=== PATIENT | female | born 1970 | race Caucasian/White ===

== ENCOUNTER 2017-09-06 17:28 | Emergency (ER) | payer BC ==
[2017-09-06] MEDS ORDERED: Ondansetron 4 MG/2 ML SDV IVPUSH ONE (18:53)
[2017-09-06] MEDS ORDERED: HYDROmorphone 0.5 MG/0.5 ML Syringe IVPUSH ONE (18:53)
[2017-09-06] MEDS ORDERED: Sodium Chloride 0.9% 1,000 ML IV SCH (19:00)
--- NOTE | 2017-09-06 19:09 | EDM.PDOC ---
ED HPI GENERAL MEDICAL PROBLEM - General Chief Complaint: Skin Complaint Stated Complaint: INCISION LEAKING FLUID Time Seen by Provider: 09/06/17 18:39 Source of Information: Reports: Patient History Limitations: Reports: No Limitations - History of Present Illness INITIAL COMMENTS - FREE TEXT/NARRATIVE: abdominal pain; this is a 47 year old female present to ER with her Stoney, she reports she had an abdominal resection on 08/15/[address] Anne Marie campos. She had her follow-up appointment on 08/28/17. Which noted a hard lump to the left periumbilical area abdomen,this mass was felt to be a hematoma. Recommendations were monitoring. Today she noted increasing abdominal pain a sudden gush of fluids from the incisional area choices foul smelling in order continues to leak fluids increasing pain. Last meal at 3 PM today; tuna fish and crackers Bowel and bladder; bowel movement, no dysuria. Denies fever chills, nausea or vomiting. Pain level IV out of 10 Onset: Sudden Duration: Hour(s):, Constant Location: Reports: Abdomen Quality: Reports: Ache, Sharp Severity: Moderate Improves with: Reports: None Worsens with: Reports: None Associated Symptoms: Reports: No Other Symptoms Lower Abdomen Pain Score (Numeric/FACES): 3 - Related Data Allergies Allergy/AdvReac Type Severity Reaction Status Date / Time cephalexin [Cephalexin] Allergy Mild Rash Verified 05/25/14 14:07 doxycycline Allergy Mild Rash Verified 05/25/14 14:07 Sulfa (Sulfonamide Allergy Mild Rash Verified 05/25/14 14:07 Antibiotics) sulfamethoxazole Allergy Mild Rash Verified 05/25/14 14:07 [From ] trimethoprim [From ] Allergy Mild Rash Verified 05/25/14 14:07 Home Meds: Home Meds traMADol [Ultram ER] 50 mg PO DAILY 04/28/13 [History] Adalimumab [Humira] 40 mg SQ ASDIRECTED 09/06/17 [History] azaTHIOprine [Imuran] 50 mg PO DAILY 09/06/17 [History] traZODone 50 mg PO BEDTIME 09/06/17 [History] Past Medical History HEENT History: Reports: Impaired Vision Gastrointestinal History: Reports: Colon Polyp, Inflammatory Bowel Disease, Other (See Below) Other Gastrointestinal History: crohns 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: Reports: Other OB/BYN History: History of tubal Musculoskeletal History: Reports: Arthritis, Fracture Dermatologic History: Reports: Eczema - Infectious Disease History Infectious Disease History: Reports: Chicken Pox 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 - Past Surgical History GI Surgical History: Reports: Hernia Repair/Other, Small Bowel Female Surgical History: Reports: Tubal Ligation Neurological Surgical History: Reports: Discectomy, Lumbar Spine Other Musculoskeletal Surgeries/Procedures:: History of back surgery Social & Family History - Family History HEENT: Reports: None Cardiac: Reports: Afib Respiratory: Reports: COPD Musculoskeletal: Reports: Arthritis Hematologic: Reports: None Oncologic: Reports: Colon, Lung - Tobacco Use Smoking Status *Q: Current Every Day Smoker Years of Tobacco use: 30 Packs/Tins Daily: 0.5 Used Tobacco, but Quit: No Second Hand Smoke Exposure: No - Caffeine Use Caffeine Use: Reports: Soda - Alcohol Use Days Per Week of Alcohol Use: 0 - Recreational Drug Use Recreational Drug Use: No - Living Situation & Occupation Living situation: Reports: Occupation: Employed (This with her Stoney and Blanca Dumont employed by [employer] in [employer].) ED ROS GENERAL - Review of Systems Review Of Systems: See Below Constitutional: Reports: Other (Abdominal pain) HEENT: Reports: No Symptoms Respiratory: Reports: No Symptoms Cardiovascular: Reports: No Symptoms Endocrine: Reports: No Symptoms GI/Abdominal: Reports: Abdominal Pain : Reports: No Symptoms Musculoskeletal: Reports: No Symptoms Skin: Reports: Other (Surgical incision with leakage) Neurological: Reports: No Symptoms Psychiatric: Reports: No Symptoms Hematologic/Lymphatic: Reports: No Symptoms Immunologic: Reports: No Symptoms ED EXAM, SKIN/RASH Exam: See Below Exam Limited By: No Limitations General Appearance: Alert, WD/WN, Anxious, Mild Distress Eye Exam: Bilateral Eye: Normal Inspection Ears: Normal External Exam Nose: Normal Inspection Throat/Mouth: Normal Inspection Head: Atraumatic, Normocephalic Neck: Normal Inspection, Supple, Non-Tender, Full Range of Motion Respiratory/Chest: No Respiratory Distress, Lungs Clear, Normal Breath Sounds, No Accessory Muscle Use, Chest Non-Tender Cardiovascular: Normal Peripheral Pulses, Regular Rate, Rhythm, No Edema, No Murmur Peripheral Pulses: 2+: Radial (L), Radial (R), Dorsalis Pedis (L), Dorsalis Pedis (R) GI/Abdominal: Normal Bowel Sounds, Soft, Tender, Other (Surgical incision noted periumbilical area with inflammation, incision was leakage of pale yellow discharge) (Female) Exam: Deferred Rectal (Female) Exam: Deferred Back Exam: Normal Inspection, Full Range of Motion Extremities: Normal Inspection, Normal Range of Motion, Non-Tender, No Pedal Edema, Normal Capillary Refill Neurological: Alert, Oriented, Normal Cognition, No Motor/Sensory Deficits Psychiatric: Anxious, Tearful Skin: Erythema (Surrounding incision), Increased Warmth, Other (Wound assistance noted to the distal end of surgical incision approximately 0.5 cm draining pale yellow green discharge ) Location, Skin: Abdomen (Umbilical with surgical incision) Characteristics: Erythematous Associated features: Warmth, Tenderness, Swelling, Inflammation, Weeping Lymphatic: No Adenopathy Course - Vital Signs Last Recorded V/S: Last Vital Signs Temp 36.7 C 09/06/17 17:57 Pulse 95 09/06/17 17:57 Resp 16 09/06/17 17:57 BP 132/73 09/06/17 17:57 Pulse Ox 97 09/06/17 17:57 - Orders/Labs/Meds Orders: Active Orders 24 hr Category Date Time Status Abdomen Pelvis w Cont [CT] Stat Exams 09/06/17 18:54 Taken Sodium Chloride 0.9% [Normal Saline] 1,000 ml Med 09/06/17 19:00 Active IV ASDIRECTED Sodium Chloride 0.9% [Normal Saline] 100 ml Med 09/06/17 19:30 Active IV ASDIRECTED Medication Orders Sodium Chloride (Normal Saline) 1,000 mls @ 999 mls/hr IV ASDIRECTED MILDRED Last Admin: 09/06/17 19:07 Dose: 999 mls/hr Sodium Chloride (Normal Saline) 100 mls @ 3 mls/sec IV ASDIRECTED MILDRED Last Admin: 09/06/17 19:32 Dose: 3 mls/sec Labs: Laboratory Tests 09/06/17 09/06/17 09/06/17 Range/Units 19:09 19:09 19:09 WBC 10.6 (4.5-11.0) K/uL RBC 4.50 (3.30-5.50) M/uL Hgb 13.4 (12.0-15.0) g/dL Hct 40.0 (36.0-48.0) % MCV 89 (80-98) fL MCH 30 (27-31) pg MCHC 34 (32-36) % Plt Count 374 (150-400) K/uL Neut % (Auto) 61 (36-66) % Lymph % (Auto) 26 (24-44) % [place] % (Auto) 9 H (2-6) % Eos % (Auto) 4 (2-4) % Baso % (Auto) 1 (0-1) % Sodium (140-148) mmol/L Potassium (3.6-5.2) mmol/L Chloride (100-108) mmol/L Carbon Dioxide (21-32) mmol/L Anion Gap (5.0-14.0) mmol/L BUN (7-18) mg/dL Creatinine 1.3 H D (0.6-1.0) mg/dL Est Cr Clr Drug Dosing 52.15 mL/min Estimated GFR (MDRD) 44 L (>60) Glucose (74-106) mg/dL Lactic Acid 3.0 H (0.4-2.0) mmol/L Calcium (8.5-10.1) mg/dL Total Bilirubin (0.2-1.0) mg/dL AST (15-37) U/L ALT (12-78) U/L Alkaline Phosphatase (46-116) U/L C-Reactive Protein 1.26 H (0.0-0.3) mg/dL Total Protein (6.4-8.2) g/dL Albumin (3.4-5.0) g/dL Globulin (2.3-3.5) g/dL Albumin/Globulin Ratio (1.2-2.2) 09/06/17 Range/Units 19:09 WBC (4.5-11.0) K/uL RBC (3.30-5.50) M/uL Hgb (12.0-15.0) g/dL Hct (36.0-48.0) % MCV (80-98) fL MCH (27-31) pg MCHC (32-36) % Plt Count (150-400) K/uL Neut % (Auto) (36-66) % Lymph % (Auto) (24-44) % [place] % (Auto) (2-6) % Eos % (Auto) (2-4) % Baso % (Auto) (0-1) % Sodium 142 (140-148) mmol/L Potassium 3.4 L (3.6-5.2) mmol/L Chloride 105 (100-108) mmol/L Carbon Dioxide 25 (21-32) mmol/L Anion Gap 15.4 H (5.0-14.0) mmol/L BUN 13 (7-18) mg/dL Creatinine 1.3 H D (0.6-1.0) mg/dL Est Cr Clr Drug Dosing 52.15 mL/min Estimated GFR (MDRD) 44 L (>60) Glucose 87 (74-106) mg/dL Lactic Acid (0.4-2.0) mmol/L Calcium 9.0 (8.5-10.1) mg/dL Total Bilirubin 0.4 (0.2-1.0) mg/dL AST 12 L (15-37) U/L ALT 12 (12-78) U/L Alkaline Phosphatase 71 (46-116) U/L C-Reactive Protein (0.0-0.3) mg/dL Total Protein 6.4 (6.4-8.2) g/dL Albumin 3.3 L (3.4-5.0) g/dL Globulin 3.1 (2.3-3.5) g/dL Albumin/Globulin Ratio 1.1 L (1.2-2.2) Meds: Medications Generic Name Dose Route Start Last Admin Trade Name Freq PRN Reason Stop Dose Admin Sodium Chloride 1,000 mls @ 999 mls/hr 09/06/17 19:00 09/06/17 19:07 Normal Saline IV 999 mls/hr ASDIRECTED MILDRED Administration Sodium Chloride 100 mls @ 3 mls/sec 09/06/17 19:30 09/06/17 19:32 Normal Saline IV 3 mls/sec ASDIRECTED MILDRED Administration Discontinued Medications Generic Name Dose Route Start Last Admin Trade Name Freq PRN Reason Stop Dose Admin Hydromorphone HCl 0.5 mg 09/06/17 18:53 09/06/17 19:08 Dilaudid IVPUSH 09/06/17 18:54 0.5 mg ONETIME ONE Administration Hydromorphone HCl 1 mg 09/06/17 20:43 Dilaudid IVPUSH 09/06/17 20:44 ONETIME ONE Iopamidol 150 ml 09/06/17 19:30 09/06/17 19:32 Isovue-300 (61%) IV 120 ml . DIRECTED MILDRED Administration Ondansetron HCl 4 mg 09/06/17 18:53 09/06/17 19:08 Zofran IVPUSH 09/06/17 18:54 4 mg ONETIME ONE Administration - Re-Assessments/Exams Free Text/Narrative Re-Assessment/Exam: 09/06/17 19:14 Will rule out abscess or other complication from small bowel resection Labs: CBC, CMP, lactic acid, CRP. Imaging: Abdomen pelvis CT with contrast Medications: Normal saline at 999mL per hour, Zofran 4 mg IV, Dilaudid 0.5 mg IV Advised to keep nothing by mouth Patient and agrees with plan of care 09/06/17 20:59 CT report shows a 4.33.17 cm complex collection within the subcutaneous tissues of the anterior abdominal wall partially underlying the incision. This could reflect a seroma through superinfection of a seroma may be considered in the setting of purulent drainage from a wound. 2. No deeper intra-abdominal or pelvic fluid collection. 3. Trace pelvic fluid seen 4. Multiple uterine mass masses likely reflecting fibroids. 5. Gallstones. 6. Multiple liver lesions which should be compared with prior CT or further characterization characterized with MRI if no prior CTs are available. Discussed report with patient she will be transferred to [facility]. for further care and treatment, Dr. Joel, is accepting physician. She'll be transferred by private vehicle, will transport. Given Dilaudid 1 mg IV prior to discharge for pain control Departure - Departure Time of Disposition: 21:02 Disposition: DC/Tfer to Acute Hospital 02 Condition: Good Clinical Impression: Abscess - Discharge Information Referrals: Markus Gaspar MD [Primary Care Provider] - Forms: ED Department Discharge Care Plan Goals: Seroma of the abdomen -Transferred to [facility], Surgery service accepting -Will be transported by private vehicle - My Orders Last 24 Hours: My Active Orders 09/06/17 18:54 Abdomen Pelvis w Cont [CT] Stat 09/06/17 19:00 Sodium Chloride 0.9% [Normal Saline] 1,000 ml IV ASDIRECTED 09/06/17 19:30 Sodium Chloride 0.9% [Normal Saline] 100 ml IV ASDIRECTED - Assessment/Plan Last 24 Hours: My Active Orders 09/06/17 18:54 Abdomen Pelvis w Cont [CT] Stat 09/06/17 19:00 Sodium Chloride 0.9% [Normal Saline] 1,000 ml IV ASDIRECTED 09/06/17 19:30 Sodium Chloride 0.9% [Normal Saline] 100 ml IV ASDIRECTED
[2017-09-06] MEDS ORDERED: Sodium Chloride 0.9% 100 ML IV SCH (19:30)
[2017-09-06] MEDS ORDERED: Iopamidol 612 MG/ML 150 ML Bottle IV SCH (19:30)
[2017-09-06] MEDS ORDERED: HYDROmorphone 1 MG/ML Syringe IVPUSH ONE (20:43)
[2017-09-06 21:03] VITALS: BP 122/63
== END 2017-09-06 21:29 ==
LOC: JP.ED 17:28
DX: T81.4XXA Infection following a procedure, initial encounter (principal); L02.211 Cutaneous abscess of abdominal wall; Z88.1 Allergy status to other antibiotic agents; Z88.2 Allergy status to sulfonamides
CPT/HCPCS: 36415; 74177; 80053; 82565; 83605; 85025; 86140; 96361; 96374; 96375; 96376; 99285; J1170; J2405; J7030; J7040

== ENCOUNTER 2018-01-22 05:28 | Inpatient (IN) | payer BC ==
[2018-01-22] MEDS ORDERED: Scopolamine 1.5 MG Transdermal Patch TOP ONE (06:00)
[2018-01-22] MEDS ORDERED: Levofloxacin/Dextrose 5%-Water 500 MG in Premix Bag 1 BAG IV ONE (06:00)
[2018-01-22] MEDS ORDERED: Acetaminophen 500 MG Tab PO ONE (06:00)
[2018-01-22] MEDS ORDERED: Dextrose 5%-Lactated Ringers 1,000 ML IV SCH (06:00)
[2018-01-22] MEDS ORDERED: Meropenem 500 MG SDV ONE (07:03)
[2018-01-22] MEDS ORDERED: fentaNYL 250 MCG/5 ML SDV ONE ×3 (07:04→08:52)
[2018-01-22] MEDS ORDERED: Glycopyrrolate 0.2 MG/ML 5 ML MDV ONE (07:05)
[2018-01-22] MEDS ORDERED: Neostigmine Methylsulfate 1 MG/ML 5 ML Syringe ONE (07:05)
[2018-01-22] MEDS ORDERED: Propofol 200 MG/20 ML SDV ONE (07:05)
[2018-01-22] MEDS ORDERED: Ondansetron 4 MG/2 ML SDV ONE (07:05)
[2018-01-22] MEDS ORDERED: Dexamethasone 4 MG/ML SDV ONE (07:05)
[2018-01-22] MEDS ORDERED: Rocuronium 50 MG/5 ML Vial ONE ×2 (07:05→07:54)
[2018-01-22] MEDS ORDERED: HYDROmorphone/Normal Saline 15 MG/30 ML PCA IV PRN (07:18)
[2018-01-22] MEDS ORDERED: Naloxone 0.4 MG/ML SDV IVPUSH PRN (07:18)
[2018-01-22] MEDS ORDERED: Ropivacaine 39 ML, Dexamethasone 8 MG, EPINEPHrine 0.4 MG, Sodium Chloride 0.9% 38.6 ML NERVRT SCH ×4 (07:30)
[2018-01-22] MEDS ORDERED: Ketamine 500 MG/5 ML MDV IV SCH (07:30)
[2018-01-22] MEDS ORDERED: Lactated Ringers 1,000 ML ONE (09:31)
[2018-01-22] MEDS ORDERED: hydrOXYzine HCl 100 MG/2 ML SDV IM ONE (09:55)
[2018-01-22] MEDS ORDERED: fentaNYL 100 MCG/2 ML SDV IVPUSH ONE (09:55)
[2018-01-22] MEDS ORDERED: LORazepam 2 MG/ML SDV IVPUSH ONE (10:31)
[2018-01-22] MEDS ORDERED: hydrOXYzine HCl 100 MG/2 ML SDV IM PRN (11:44)
[2018-01-22] MEDS: Cyclobenzaprine 10 MG Tab PO PRN (12:07)
[2018-01-22] MEDS: LORazepam 2 MG/ML SDV IV PRN ×2 (13:06→18:31)
[2018-01-22] MEDS: Pantoprazole 40 MG Vial IV SCH (13:15)
[2018-01-22] MEDS: Dextrose 5%-Lactated Ringers 1,000 ML IV SCH ×2 (13:17→19:17)
[2018-01-22] MEDS: Acetaminophen 500 MG Tab PO SCH ×2 (13:37→20:14)
[2018-01-22] MEDS: Ibuprofen 400 MG Tab PO SCH ×2 (16:06→22:06)
[2018-01-22] MEDS: HYDROmorphone/Normal Saline 15 MG/30 ML PCA IV PRN (19:17)
[2018-01-22] MEDS: traZODone 50 MG Tab PO SCH (22:05)
[2018-01-23] MEDS: Dextrose 5%-Lactated Ringers 1,000 ML IV SCH ×2 (00:55→10:57)
[2018-01-23] MEDS: Acetaminophen 500 MG Tab PO SCH ×4 (02:11→20:07)
[2018-01-23] MEDS: Ibuprofen 400 MG Tab PO SCH ×4 (05:22→21:45)
[2018-01-23] MEDS: Levofloxacin/Dextrose 5%-Water 500 MG in Premix Bag 1 BAG IV SCH (05:24)
[2018-01-23] MEDS: Cyclobenzaprine 10 MG Tab PO PRN ×3 (07:36→23:56)
[2018-01-23] MEDS: Bisacodyl 5 MG Tab PO SCH ×2 (09:14→20:07)
--- NOTE | 2018-01-23 09:51 | PN ---
DATE OF SERVICE: 01/22/2018 SUBJECTIVE: Cheri is postoperative day 1. Her vital signs have been stable. Temperature max of 99.8. She has had quite a bit in the way of muscle spasms, taking Flexeril and they seem to use subside, up ambulating, n.p.o. Her oral intake 1200 and output via Marte catheter was 3000 of clear libia urine. LINDA drain put out 130 mL of a light pink serosanguineous drainage. OBJECTIVE: HEENT: Negative. NECK: Supple. HEART: Regular rate and rhythm. LUNGS: Clear. ABDOMEN: Dressing is dry and intact. Abdominal binder is on. LINDA drain intact. EXTREMITIES: SCDs are on and no peripheral edema. ASSESSMENT: Exploratory laparotomy with total abdominal hysterectomy, left salpingo- oophorectomy (right ovary left in place), repair of incarcerated incisional hernia with mesh and placement of Vicryl mesh for uterine fibroids with abnormal vaginal bleeding and incarcerated multifocal incisional hernia. Date of surgery 01/22/2018. PLAN: 1. Decrease IV to 100 mL per hour. 2. Leave Marte catheter in to promote better healing to keep bladder empty to avoid tension on suture line. 3. Senna Plus one b.i.d. 4. Dulcolax tablets one b.i.d. 5. Full liquid diet. 6. Good pulmonary toilet. 7. We will evaluate p.r.n. or in a.m. Lilly Sims PA-C /[id number]
[2018-01-23] MEDS: Pantoprazole 40 MG Vial IV SCH (15:18)
[2018-01-23] MEDS: HYDROmorphone/Normal Saline 15 MG/30 ML PCA IV PRN (15:40)
[2018-01-23] MEDS: traZODone 50 MG Tab PO SCH (20:08)
[2018-01-23] MEDS: Ondansetron 4 MG/2 ML SDV IV PRN (23:56)
[2018-01-24] MEDS: Acetaminophen 500 MG Tab PO SCH ×4 (02:17→19:16)
[2018-01-24] MEDS: Dextrose 5%-Lactated Ringers 1,000 ML IV SCH (02:23)
[2018-01-24] MEDS: Ibuprofen 400 MG Tab PO SCH ×4 (05:38→21:29)
[2018-01-24] MEDS: Levofloxacin/Dextrose 5%-Water 500 MG in Premix Bag 1 BAG IV SCH (05:55)
[2018-01-24] MEDS: Bisacodyl 5 MG Tab PO SCH ×2 (08:01→21:29)
[2018-01-24] MEDS: Pantoprazole 40 MG Vial IV SCH (14:03)
[2018-01-24] MEDS: Cyclobenzaprine 10 MG Tab PO PRN (14:48)
[2018-01-24] MEDS: HYDROmorphone/Normal Saline 15 MG/30 ML PCA IV PRN (17:19)
[2018-01-24] MEDS: traZODone 50 MG Tab PO SCH (21:28)
[2018-01-24] MEDS: hydrOXYzine HCl 10 MG Tab PO PRN (21:28)
[2018-01-25] MEDS: Dextrose 5%-Lactated Ringers 1,000 ML IV SCH ×2 (00:32→23:53)
[2018-01-25] MEDS: Acetaminophen 500 MG Tab PO SCH ×4 (01:01→20:49)
[2018-01-25] MEDS: Ibuprofen 400 MG Tab PO SCH ×4 (05:19→23:57)
[2018-01-25] MEDS: Levofloxacin/Dextrose 5%-Water 500 MG in Premix Bag 1 BAG IV SCH (05:20)
[2018-01-25] MEDS ORDERED: Magnesium Citrate Solution 296 ML Bottle PO ONE (07:30)
[2018-01-25] MEDS: Ondansetron 4 MG/2 ML SDV IV PRN ×2 (07:44→18:21)
[2018-01-25] MEDS: hydrOXYzine HCl 10 MG Tab PO PRN (08:13)
[2018-01-25] MEDS ORDERED: Scopolamine 1.5 MG Transdermal Patch TOP ONE (09:00)
[2018-01-25] MEDS: Bisacodyl 5 MG Tab PO SCH ×2 (09:01→23:56)
[2018-01-25] MEDS: Magnesium Citrate Solution 296 ML Bottle PO SCH ×2 (11:22→20:49)
[2018-01-25] MEDS: HYDROmorphone 2 MG Tab PO PRN ×2 (12:43→18:18)
[2018-01-25] MEDS: Pantoprazole 40 MG Vial IV SCH (14:48)
[2018-01-25] MEDS ORDERED: Bisacodyl 10 MG Supp RECTAL PRN (15:00)
[2018-01-25] MEDS ORDERED: Sodium Phosphate,Monobasic/Sodium Phosphate,Dibasic Enema 133 ML Bottle RECTAL STA (19:51)
[2018-01-25] MEDS: LORazepam 2 MG/ML SDV IV PRN (20:20)
[2018-01-25] MEDS ORDERED: Naloxone 0.4 MG/ML SDV IVPUSH PRN (23:22)
[2018-01-25] MEDS: HYDROmorphone/Normal Saline 15 MG/30 ML PCA IV PRN (23:41)
[2018-01-25] MEDS: Metoclopramide 10 MG/2 ML SDV IVPUSH SCH (23:51)
[2018-01-25] MEDS: traZODone 50 MG Tab PO SCH (23:56)
[2018-01-26] MEDS: LORazepam 2 MG/ML SDV IV PRN ×2 (00:05→04:17)
[2018-01-26] MEDS: Bisacodyl 5 MG Tab PO SCH (00:11)
[2018-01-26] MEDS: traZODone 50 MG Tab PO SCH (00:12)
[2018-01-26] MEDS: Acetaminophen 500 MG Tab PO SCH (01:59)
[2018-01-26] MEDS: Ondansetron 4 MG/2 ML SDV IV PRN (02:02)
[2018-01-26] MEDS: Ibuprofen 400 MG Tab PO SCH (05:59)
[2018-01-26] MEDS: Metoclopramide 10 MG/2 ML SDV IVPUSH SCH ×4 (05:59→22:30)
[2018-01-26] MEDS: Levofloxacin/Dextrose 5%-Water 500 MG in Premix Bag 1 BAG IV SCH (06:02)
[2018-01-26] MEDS ORDERED: Lidocaine 2% Viscous Solution 15 ML Cup PO STA (06:35)
[2018-01-26] MEDS ORDERED: Benzocaine/Cetylpyridinium/Menthol Lozenge MUCMEM PRN (07:43)
--- NOTE | 2018-01-26 07:47 | PCM.PN ---
- General Info Date of Service: 01/26/18 Admission Dx/Problem (Free Text): Uterine Fibroids and Incisional hernia. Subjective Update: Patient is POD #4. Her vitals were stable overnight, am abdominal X-Ray demonstrated an Ileus. Her po intake is where we would like it to be, although due to the Ileus she has been made NPO and an NG tube was placement. She has been up, ambulating, voiding and has had one BM in the last 24 hours. Functional Status: Reports: Pain Controlled, Ambulating, Urinating, New Symptoms , Incentive Spirometry - Review of Systems General: Reports: No Symptoms HEENT: Reports: No Symptoms Pulmonary: Reports: No Symptoms Cardiovascular: Reports: No Symptoms Gastrointestinal: Reports: No Symptoms Genitourinary: Reports: No Symptoms Musculoskeletal: Reports: No Symptoms Skin: Reports: No Symptoms Neurological: Reports: No Symptoms Psychiatric: Reports: No Symptoms - Patient Data Vitals - Most Recent: Last Vital Signs Temp 99.9 F 01/26/18 02:06 Pulse 108 H 01/26/18 02:06 Resp 16 01/26/18 02:06 BP 118/65 01/26/18 02:06 Pulse Ox 92 L 01/26/18 02:25 Weight - Most Recent: 172 lb 0.004 oz I&O - Last 24 Hours: Intake & Output 01/25/18 01/26/18 01/26/18 22:59 06:59 14:59 Intake Total 1000 729 Output Total 800 1100 Balance 200 -371 Med Orders - Current: Current Medications Acetaminophen (Tylenol Extra Strength) 1,000 mg PO Q6H [facility] Last Admin: 01/26/18 01:59 Dose: Not Given Azathioprine (Imuran) 50 mg PO DAILY [facility] Last Admin: 01/25/18 09:01 Dose: Not Given Bisacodyl (Dulcolax) 10 mg PO BID [facility] Last Admin: 01/26/18 00:11 Dose: Not Given Bisacodyl (Dulcolax) 10 mg RECTAL Q12H PRN PRN Reason: CONSTIPATION Last Admin: 01/25/18 16:23 Dose: 10 mg Cyclobenzaprine HCl (Flexeril) 10 mg PO Q6H PRN PRN Reason: MUSCLE SPASM Last Admin: 01/24/18 14:48 Dose: 10 mg Hydromorphone HCl (Dilaudid) 2 - 4 mg PO Q4H PRN PRN Reason: PAIN Last Admin: 01/25/18 18:18 Dose: 4 mg Hydromorphone HCl (Dilaudid Car Distributor 15 Mg In Ns 30 Ml) 0 mg IV ASDIRECTED PRN; Protocol PRN Reason: Pain Last Admin: 01/25/18 23:41 Dose: 15 mg Hydroxyzine HCl (Vistaril) 100 mg IM Q4H PRN PRN Reason: PAIN Last Admin: 01/24/18 17:13 Dose: 100 mg Hydroxyzine HCl (Atarax) 10 mg PO Q4H PRN PRN Reason: Pain Last Admin: 01/25/18 08:13 Dose: 10 mg Levofloxacin/Dextrose 500 mg/ (Premix) 100 mls @ 100 mls/hr IV Q24H [facility] Last Admin: 01/26/18 06:02 Dose: 100 mls/hr Dextrose/Lactated Ringer's (Dextrose 5%-Lactated Ringers) 1,000 mls @ 100 mls/ hr IV ASDIRECTED MILDRED Ibuprofen (Motrin) 400 mg PO QID [facility] Last Admin: 01/26/18 05:59 Dose: Not Given Lorazepam (Ativan) 0.5 - 1 mg IV Q2H PRN PRN Reason: MUSCLE SPASM Last Admin: 01/26/18 04:17 Dose: 1 mg Metoclopramide HCl (Reglan) 10 mg IVPUSH Q6H [facility] Naloxone HCl (Narcan) 0.1 mg IVPUSH Q2M PRN PRN Reason: Respiratory Distress Ondansetron HCl (Zofran) 4 mg IV Q4H PRN PRN Reason: N/V Last Admin: 01/26/18 02:02 Dose: 4 mg Pantoprazole Sodium (Protonix Iv) 40 mg IV Q24H [facility] Last Admin: 01/25/18 14:48 Dose: 40 mg Senna/Docusate Sodium (Senna Plus) 1 tab PO BID [facility] Last Admin: 01/26/18 00:12 Dose: Not Given Trazodone HCl (Trazodone) 50 mg PO BEDTIME [facility] Last Admin: 01/26/18 00:12 Dose: Not Given Discontinued Medications Acetaminophen (Tylenol Extra Strength) 1,000 mg PO ONETIME ONE Stop: 01/22/18 06:01 Last Admin: 01/22/18 05:56 Dose: 1,000 mg Ropivacaine 39 ml/Dexamethasone 8 mg/Epinephrine HCl 0.4 mg/ Sodium Chloride 38.6 ml 0 ml NERVRT ASDIRECTED [facility] Last Admin: 01/22/18 07:41 Dose: 80 syringe Dexamethasone (Dexamethasone) Confirm Administered Dose 4 mg .ROUTE .STK-MED ONE Stop: 01/22/18 07:06 Fentanyl (Sublimaze) Confirm Administered Dose 250 mcg .ROUTE .STK-MED ONE Stop: 01/22/18 07:05 Fentanyl (Sublimaze) Confirm Administered Dose 250 mcg .ROUTE .STK-MED ONE Stop: 01/22/18 07:43 Fentanyl (Sublimaze) Confirm Administered Dose 250 mcg .ROUTE .STK-MED ONE Stop: 01/22/18 08:53 Fentanyl (Sublimaze) 100 mcg IVPUSH ONETIME ONE Stop: 01/22/18 09:56 Last Admin: 01/22/18 09:59 Dose: 100 mcg Glycopyrrolate (Robinul) Confirm Administered Dose 1 mg .ROUTE .STK-MED ONE Stop: 01/22/18 07:06 Hydromorphone HCl (Dilaudid Car Distributor 15 Mg In Ns 30 Ml) 0 mg IV ASDIRECTED PRN; Protocol PRN Reason: Pain Last Admin: 01/22/18 07:36 Dose: 0.3 mg Hydromorphone HCl (Dilaudid Car Distributor 15 Mg In Ns 30 Ml) 0 mg IV ASDIRECTED PRN; Protocol PRN Reason: Pain Last Admin: 01/24/18 17:19 Dose: 15 mg Hydroxyzine HCl (Vistaril) 100 mg IM ONETIME ONE Stop: 01/22/18 09:56 Last Admin: 01/22/18 10:00 Dose: 100 mg Dextrose/Lactated Ringer's (Dextrose 5%-Lactated Ringers) 1,000 mls @ 100 mls/ hr IV ASDIRECTED [facility] Last Admin: 01/22/18 06:33 Dose: 100 mls/hr Levofloxacin/Dextrose 500 mg/ (Premix) 100 mls @ 100 mls/hr IV ONETIME ONE Stop: 01/22/18 06:59 Last Admin: 01/22/18 07:40 Dose: 100 mls/hr Ketamine HCl 100 mg/ Sodium (Chloride) 100 mls @ 18.6 mls/hr IV ASDIRECTED [facility] Lactated Ringer's (Ringers, Lactated) Confirm Administered Dose 1,000 mls @ as directed .ROUTE .STK-MED ONE Stop: 01/22/18 09:32 Dextrose/Lactated Ringer's (Dextrose 5%-Lactated Ringers) 1,000 mls @ 175 mls/ hr IV ASDIRECTED [facility] Last Admin: 01/23/18 00:55 Dose: 175 mls/hr Dextrose/Lactated Ringer's (Dextrose 5%-Lactated Ringers) 1,000 mls @ 100 mls/ hr IV ASDIRECTED [facility] Last Admin: 01/25/18 23:53 Dose: 100 mls/hr Ketamine HCl (Ketalar) 34 mg IV ASDIRECTED [facility] Lidocaine HCl (Xylocaine 2% Viscous) 15 ml PO ASDIRECTED [facility] Stop: 01/26/18 06:36 Last Admin: 01/26/18 06:45 Dose: 15 ml Lorazepam (Ativan) 1 mg IVPUSH ONETIME ONE Stop: 01/22/18 10:32 Last Admin: 01/22/18 10:39 Dose: 1 mg Magnesium Citrate (Citrate Of Magnesia) 296 ml PO ONETIME ONE Stop: 01/25/18 07:31 Last Admin: 01/25/18 07:45 Dose: 296 ml Magnesium Citrate (Citrate Of Magnesia) 296 ml PO Q8H [facility] Stop: 01/25/18 20:01 Last Admin: 01/25/18 20:49 Dose: Not Given Meropenem (Merrem) Confirm Administered Dose 500 mg .ROUTE .STK-MED ONE Stop: 01/22/18 07:04 Last Admin: 01/22/18 07:45 Dose: 500 mg Metoclopramide HCl (Reglan) 10 mg IVPUSH Q6H [facility] Last Admin: 01/26/18 05:59 Dose: 10 mg Neostigmine Methylsulfate (Neostigmine) Confirm Administered Dose 5 mg .ROUTE .STK-MED ONE Stop: 01/22/18 07:06 Ondansetron HCl (Zofran) Confirm Administered Dose 4 mg .ROUTE .STK-MED ONE Stop: 01/22/18 07:06 Propofol (Diprivan 20 Ml) Confirm Administered Dose 200 mg .ROUTE .STK-MED ONE Stop: 01/22/18 07:06 Rocuronium [place] (Zemuron) Confirm Administered Dose 50 mg .ROUTE .STK-MED ONE Stop: 01/22/18 07:06 Rocuronium [place] (Zemuron) Confirm Administered Dose 50 mg .ROUTE .STK-MED ONE Stop: 01/22/18 07:55 Scopolamine (Transderm-Scop) 1.5 mg TOP ONETIME ONE Stop: 01/22/18 06:01 Last Admin: 01/22/18 05:58 Dose: 1.5 mg Scopolamine (Transderm-Scop) 1.5 mg TOP ONETIME ONE Stop: 01/25/18 09:01 Last Admin: 01/25/18 09:01 Dose: 1.5 mg Sodium Biphosphate/Sodium Phosphate (Fleet Enema) 133 ml RECTAL ONETIME STA Stop: 01/25/18 19:52 Last Admin: 01/25/18 20:07 Dose: 1 bottle - Exam General: Alert, Oriented, Mild Distress (Patient was very uncomfrotable due to the Ileus and pressure from this distension. ) HEENT: Pupils Equal, Mucous Membr. Moist/[place] Neck: Supple Lungs: Clear to Auscultation, Normal Respiratory Effort Cardiovascular: Regular Rate, Regular Rhythm GI/Abdominal Exam: Distended Extremities: Normal Range of Motion Skin: Warm, Dry, Intact Wound/Incisions: Healing Well, Dressing Dry and Intact, No Drainage Neurological: No New Focal Deficit Psy/Mental Status: Alert, Normal Affect, Normal Mood - Problem List Review Problem List Initiated/Reviewed/Updated: Yes - Assessment Assessment:: Status post exploratory laparotmoy with total abdominal hysterectomy, left salpingo-oophorectomg repair of incarcerated incisional hernia with mesh and placement of vicryl mesh for uterine fibroids with abnormal vaginal bleeding and incarcerated multifocal incisional hernia. - Plan Plan:: 1. Metoclopramide 10mg IV push q6h 2. CBC/CMP/Mag/Phosphorus in am 3. NG tube placement 4. Abdomen AP flat upright timed 5. NPO 6. NG tube placement 7. Reevaluate prn or in am
[2018-01-26] MEDS ORDERED: Lidocaine 2% Viscous Solution 15 ML Cup MUCMEM PRN (08:08)
[2018-01-26] MEDS: Bisacodyl 10 MG Supp RECTAL SCH ×2 (09:19→22:30)
--- NOTE | 2018-01-26 10:20 | CR ---
Abdomen 2V AP Flat Upright INDICATION: f/u abdominal distention COMPARISON: Nothing recent. CT 09/06/2017. FINDINGS: 5 views. No free air. Small left pleural effusion or infiltrate. Moderately dilated small bowel in associated air-fluid levels in the abdomen. Maximum small bowel diameter is nearly 7 cm. No definite colonic distention. IMPRESSION: Small bowel obstruction.
[2018-01-26] MEDS: Dextrose 5%-Lactated Ringers 1,000 ML IV SCH ×2 (11:07→21:07)
--- NOTE | 2018-01-26 12:25 | PN ---
DATE OF SERVICE: 01/25/2018 The patient has been afebrile with stable vital signs. Passing little bit of flatus. No bowel movement as of yet. Abdomen is mildly distended. We will give her some magnesium citrate orally today and can repeat that this evening if necessary. Otherwise will give Dulcolax tablets. Will switch over to oral pain medication today. She may be ready for discharge home tomorrow. Cleve Vela MD Job #: [id number]
--- NOTE | 2018-01-26 13:25 | PN ---
DATE OF SERVICE: 01/24/2018 The patient has been afebrile with stable vital signs. No significant flatus or bowel movement as of yet. We will gradually advance her diet, but not meter changes records clerk to oral pain medication as of yet. Continue with bowel stimulation. The Marte catheter and LINDA drain I think can be removed and will have her get in the shower if desired. Cleve Vela MD Job #: [id number]
[2018-01-26] MEDS: Pantoprazole 40 MG Vial IV SCH (14:32)
[2018-01-26] MEDS ORDERED: Phenol/Sodium Phenolate Spray 180 ML Bottle PO SCH (19:30)
[2018-01-27] MEDS: Metoclopramide 10 MG/2 ML SDV IVPUSH SCH ×4 (05:01→21:32)
[2018-01-27] MEDS: Levofloxacin/Dextrose 5%-Water 500 MG in Premix Bag 1 BAG IV SCH (05:04)
--- NOTE | 2018-01-27 07:09 | PN ---
DATE OF SERVICE: 01/26/2018 The patient has been afebrile with stable vital signs. She was complaining of a little bit of nausea this morning and an abdominal x-ray showed markedly distended stomach and general ileus pattern. The NG tube was placed and a large amount came out and I suspect the patient was feeling somewhat better. We will make her n.p.o. except for ice chips and sips of water for today with the NG tube in place. Hold her medications and do Dulcolax suppositories b.i.d. Check some labs in the morning. Otherwise, maximize activity and work with pulmonary toilet. If things do not seem to be resolving, we may needing a CAT scan of the abdomen and pelvis to make sure there is not some early complication causing an obstructive pattern versus an ileus. Cleve Vela MD Job #: [id number]
--- NOTE | 2018-01-27 08:50 | CR ---
Abdomen 2V AP Flat Upright INDICATION: f/u ileus COMPARISON: 01/26/2018 FINDINGS: 2 views. NG tube is been placed with tip in the proximal stomach. Improvement in small bowel obstructive patte rn. Some dilated air-filled loops of small bowel and associated air-fluid levels persist. No free air .
[2018-01-27] MEDS: Potassium Phosphates 22.5 MMOLE in Sodium Chloride 0.9% 250 ML IV SCH ×2 (08:57→12:18)
[2018-01-27] MEDS: Bisacodyl 10 MG Supp RECTAL SCH ×2 (09:21→21:49)
[2018-01-27] MEDS: HYDROmorphone/Normal Saline 15 MG/30 ML PCA IV PRN (13:59)
[2018-01-27] MEDS: Pantoprazole 40 MG Vial IV SCH (14:02)
[2018-01-27] MEDS ORDERED: Loratadine 10 MG Tab PO PRN (21:08)
[2018-01-27] MEDS ORDERED: Acetaminophen 1,000 MG in Premix Bag 1 BAG IV ONE (21:15)
[2018-01-27] MEDS: traZODone 50 MG Tab PO SCH (21:37)
[2018-01-28] MEDS: Dextrose 5%-Lactated Ringers 1,000 ML IV SCH ×2 (01:07→12:22)
[2018-01-28] MEDS: Metoclopramide 10 MG/2 ML SDV IVPUSH SCH ×4 (03:25→21:53)
[2018-01-28] MEDS: Levofloxacin/Dextrose 5%-Water 500 MG in Premix Bag 1 BAG IV SCH (05:41)
[2018-01-28] MEDS: Acetaminophen 500 MG Tab PO SCH ×3 (10:07→21:53)
[2018-01-28] MEDS: Ibuprofen 400 MG Tab PO SCH ×3 (10:08→21:53)
[2018-01-28] MEDS ORDERED: Witch Hazel Medicated Pads 100/Jar TOP PRN (10:20)
[2018-01-28] MEDS ORDERED: Dextrose 5%-Lactated Ringers 1,000 ML IV SCH (14:15)
[2018-01-28] MEDS: Pantoprazole 40 MG Vial IV SCH (15:15)
[2018-01-28] MEDS: traZODone 50 MG Tab PO SCH (21:53)
[2018-01-29] MEDS: Acetaminophen 500 MG Tab PO SCH (04:29)
[2018-01-29] MEDS: Metoclopramide 10 MG/2 ML SDV IVPUSH SCH (04:29)
[2018-01-29] MEDS: Ibuprofen 400 MG Tab PO SCH (06:04)
[2018-01-29 07:33] VITALS: BP 111/65
--- NOTE | 2018-01-29 07:42 | PCM.DCSUM1 ---
Discharge Summary - Hospital Course Brief History: Wilfred is a 48 year old white female. She has a history of Crohn 's diseae and fibromyalgia. - Discharge Data Discharge Date: 01/29/18 Discharge Disposition: Home, Self-Care 01 Condition: Good - Patient Summary/Data Operative Procedure(s) Performed: Status post exploratory laparotmoy with total abdominal hysterectomy, left salpingo-oophorectomg repair of incarcerated incisional hernia with mesh and placement of vicryl mesh for uterine fibroids with abnormal vaginal bleeding and incarcerated multifocal incisional hernia. Complications: Post opperative Ileus. Hospital Course: Patient had surgery on 01/22/2018. On POD #1 she was experiencing muscle spasms that wer relived with Flexeril. POD#2 her vitals were stable with no acute changes although she had not had any flatus or a BM. POD #3 Her vitals continued to be stable, she began passing gas and still had not had a BM. Ducolax was given to try and progress the process. POD #4 Patient was feeling distended and an abdominal X-ray was taken. It demonstrated significant distension. The patient was made NPO and and NG tube was placed. Ducolax suppositories were used to continue to help progress the bowel movement. POD #5 NG was kept in till late pm. Patients discomfort and distension had improved. POD#6 Patients was stable and was having bowel movements. POD #7 Patient is preparing for discharge. - Patient Instructions Activity: As Tolerated - Discharge Plan Prescriptions/Med Rec: HYDROmorphone [Dilaudid] 2 - 4 mg PO Q4H PRN #40 tablet PRN Reason: PAIN Home Medications: Home Meds Adalimumab [Humira] 40 mg SQ ASDIRECTED 09/06/17 [History] azaTHIOprine [Imuran] 50 mg PO DAILY 09/06/17 [History] traZODone 50 mg PO BEDTIME 09/06/17 [History] Ibuprofen 200 mg PO Q6H PRN 01/20/18 [History] Acetaminophen [Tylenol Extra Strength] 1,000 mg PO Q6H tablet 01/29/18 [Rx] HYDROmorphone [Dilaudid] 2 - 4 mg PO Q4H PRN #40 tablet 01/29/18 [Rx] Referrals: Cleve Vela MD [Physician] - 02/04/18 9:00 am - Discharge Summary/Plan Comment DC Time >30 min.: Yes Discharge Summary/Plan Comment: 1. Acetaminophen 1,000 mg po 1rh tablet 2. Hydromorphone 2-4mg po q4h prn 3. Continue adalimumab 40mg Sub - Q as directed 4. Ibuprofen 200mg po every 6 hours prn for pain 5. Continue Azathioprin 50mg po qd 6. Continue trazadone 50mg po at bedtime 7. Stop tramadol 50mg po q6hr prn for pain 8. Plan for discharge - General Info Date of Service: 01/29/18 Admission Dx/Problem (Free Text: Uterine Fibroids and Incisional hernia. Subjective Update: Patient is POD #7 and is getting ready for discharge. Her vitals are stable and there were no acute events overnight. She is up, ambulating, voiding and has had multiple BMs in the last 24 hours. Functional Status: Reports: Pain Controlled, Tolerating Diet, Ambulating, Urinating, Incentive Spirometry - Review of Systems General: Reports: No Symptoms HEENT: Reports: No Symptoms Pulmonary: Reports: No Symptoms Cardiovascular: Reports: No Symptoms Gastrointestinal: Reports: No Symptoms Genitourinary: Reports: No Symptoms Musculoskeletal: Reports: No Symptoms Skin: Reports: No Symptoms Neurological: Reports: No Symptoms Psychiatric: Reports: No Symptoms Systems Review Comment: Remainder of ROS is negative for any pertinent positives or negatives. - Patient Data Vitals - Most Recent: Last Vital Signs Temp 97.3 F 01/29/18 07:00 Pulse 67 01/29/18 07:00 Resp 18 01/29/18 07:00 BP 111/65 01/29/18 07:00 Pulse Ox 98 01/29/18 07:00 Weight - Most Recent: 172 lb 0.004 oz I&O - Last 24 hours: Intake & Output 01/28/18 01/29/18 01/29/18 22:59 06:59 14:59 Intake Total 2 581 Output Total 1 Balance 1 581 Med Orders - Current: Current Medications Acetaminophen (Tylenol Extra Strength) 1,000 mg PO Q6H [facility] Last Admin: 01/29/18 04:29 Dose: 1,000 mg Azathioprine (Imuran) 50 mg PO DAILY [facility] Last Admin: 01/28/18 10:09 Dose: Not Given Benzocaine/Menthol (Cepacol Sore Throat) 1 lozenge MUCMEM ASDIRECTED PRN PRN Reason: SORE THROAT Last Admin: 01/26/18 16:06 Dose: 1 lozenge Cyclobenzaprine HCl (Flexeril) 10 mg PO Q6H PRN PRN Reason: MUSCLE SPASM Last Admin: 01/24/18 14:48 Dose: 10 mg Hydromorphone HCl (Dilaudid) 2 - 4 mg PO Q4H PRN PRN Reason: PAIN Last Admin: 01/25/18 18:18 Dose: 4 mg Hydromorphone HCl (Dilaudid Airplane Captain 15 Mg In Ns 30 Ml) 0 mg IV ASDIRECTED PRN; Protocol PRN Reason: Pain Last Admin: 01/27/18 13:59 Dose: 15 mg Hydroxyzine HCl (Vistaril) 100 mg IM Q4H PRN PRN Reason: PAIN Last Admin: 01/24/18 17:13 Dose: 100 mg Hydroxyzine HCl (Atarax) 10 mg PO Q4H PRN PRN Reason: Pain Last Admin: 01/25/18 08:13 Dose: 10 mg Dextrose/Lactated Ringer's (Dextrose 5%-Lactated Ringers) 1,000 mls @ 50 mls/ hr IV ASDIRECTED [facility] Last Admin: 01/29/18 06:05 Dose: 50 mls/hr Ibuprofen (Motrin) 400 mg PO QID [facility] Last Admin: 01/29/18 06:04 Dose: 400 mg Lidocaine HCl (Xylocaine 2% Viscous) 15 ml MUCMEM ASDIRECTED PRN PRN Reason: SORE THROAT Loratadine (Claritin) 10 mg PO DAILY PRN PRN Reason: Allergies Last Admin: 01/27/18 21:37 Dose: 10 mg Lorazepam (Ativan) 0.5 - 1 mg IV Q2H PRN PRN Reason: MUSCLE SPASM Last Admin: 01/26/18 04:17 Dose: 1 mg Metoclopramide HCl (Reglan) 10 mg IVPUSH Q6H [facility] Last Admin: 01/29/18 04:29 Dose: 10 mg Naloxone HCl (Narcan) 0.1 mg IVPUSH Q2M PRN PRN Reason: Respiratory Distress Ondansetron HCl (Zofran) 4 mg IV Q4H PRN PRN Reason: N/V Last Admin: 01/26/18 02:02 Dose: 4 mg Pantoprazole Sodium (Protonix Iv) 40 mg IV Q24H [facility] Last Admin: 01/28/18 15:15 Dose: 40 mg Phenol (Phenaseptic Liquid) 180 ml PO ASDIRECTED [facility] Last Admin: 01/26/18 19:42 Dose: 1 spray Phenyleph/Shark Oil/Min Oil/Petrol (Preparation H Oint) 0 gm RECTAL ASDIRECTED PRN PRN Reason: Hemorrhoids Senna/Docusate Sodium (Senna Plus) 1 tab PO BID [facility] Last Admin: 01/28/18 20:00 Dose: 1 tab Trazodone HCl (Trazodone) 50 mg PO BEDTIME [facility] Last Admin: 01/28/18 21:53 Dose: 50 mg [place] (Tucks) 1 pad TOP ASDIRECTED PRN PRN Reason: Hemorrhoids Last Admin: 01/28/18 10:56 Dose: 1 pad Discontinued Medications Acetaminophen (Tylenol Extra Strength) 1,000 mg PO ONETIME ONE Stop: 01/22/18 06:01 Last Admin: 01/22/18 05:56 Dose: 1,000 mg Acetaminophen (Tylenol Extra Strength) 1,000 mg PO Q6H [facility] Last Admin: 01/26/18 01:59 Dose: Not Given Azathioprine (Imuran) 50 mg PO DAILY [facility] Last Admin: 01/25/18 09:01 Dose: Not Given Bisacodyl (Dulcolax) 10 mg PO BID [facility] Last Admin: 01/26/18 00:11 Dose: Not Given Bisacodyl (Dulcolax) 10 mg RECTAL Q12H PRN PRN Reason: CONSTIPATION Last Admin: 01/25/18 16:23 Dose: 10 mg Bisacodyl (Dulcolax) 10 mg RECTAL BID [facility] Last Admin: 01/27/18 21:49 Dose: Not Given Ropivacaine 39 ml/Dexamethasone 8 mg/Epinephrine HCl 0.4 mg/ Sodium Chloride 38.6 ml 0 ml NERVRT ASDIRECTED [facility] Last Admin: 01/22/18 07:41 Dose: 80 syringe Dexamethasone (Dexamethasone) Confirm Administered Dose 4 mg .ROUTE .STK-MED ONE Stop: 01/22/18 07:06 Fentanyl (Sublimaze) Confirm Administered Dose 250 mcg .ROUTE .STK-MED ONE Stop: 01/22/18 07:05 Fentanyl (Sublimaze) Confirm Administered Dose 250 mcg .ROUTE .[facility] ONE Stop: 01/22/18 07:43 Fentanyl (Sublimaze) Confirm Administered Dose 250 mcg .ROUTE .[facility]-MED ONE Stop: 01/22/18 08:53 Fentanyl (Sublimaze) 100 mcg IVPUSH ONETIME ONE Stop: 01/22/18 09:56 Last Admin: 01/22/18 09:59 Dose: 100 mcg Glycopyrrolate (Robinul) Confirm Administered Dose 1 mg .ROUTE .[facility]-MED ONE Stop: 01/22/18 07:06 Hydromorphone HCl (Dilaudid Airplane Captain 15 Mg In Ns 30 Ml) 0 mg IV ASDIRECTED PRN; Protocol PRN Reason: Pain Last Admin: 01/22/18 07:36 Dose: 0.3 mg Hydromorphone HCl (Dilaudid Airplane Captain 15 Mg In Ns 30 Ml) 0 mg IV ASDIRECTED PRN; Protocol PRN Reason: Pain Last Admin: 01/24/18 17:19 Dose: 15 mg Hydroxyzine HCl (Vistaril) 100 mg IM ONETIME ONE Stop: 01/22/18 09:56 Last Admin: 01/22/18 10:00 Dose: 100 mg Dextrose/Lactated Ringer's (Dextrose 5%-Lactated Ringers) 1,000 mls @ 100 mls/ hr IV ASDIRECTED [facility] Last Admin: 01/22/18 06:33 Dose: 100 mls/hr Levofloxacin/Dextrose 500 mg/ (Premix) 100 mls @ 100 mls/hr IV ONETIME ONE Stop: 01/22/18 06:59 Last Admin: 01/22/18 07:40 Dose: 100 mls/hr Ketamine HCl 100 mg/ Sodium (Chloride) 100 mls @ 18.6 mls/hr IV ASDIRECTED [facility] Lactated Ringer's (Ringers, Lactated) Confirm Administered Dose 1,000 mls @ as directed .ROUTE .[facility] ONE Stop: 01/22/18 09:32 Dextrose/Lactated Ringer's (Dextrose 5%-Lactated Ringers) 1,000 mls @ 175 mls/ hr IV ASDIRECTED [facility] Last Admin: 01/23/18 00:55 Dose: 175 mls/hr Levofloxacin/Dextrose 500 mg/ (Premix) 100 mls @ 100 mls/hr IV Q24H [facility] Last Admin: 01/28/18 05:41 Dose: 100 mls/hr Dextrose/Lactated Ringer's (Dextrose 5%-Lactated Ringers) 1,000 mls @ 100 mls/ hr IV ASDIRECTED [facility] Last Admin: 01/25/18 23:53 Dose: 100 mls/hr Dextrose/Lactated Ringer's (Dextrose 5%-Lactated Ringers) 1,000 mls @ 100 mls/ hr IV ASDIRECTED [facility] Last Admin: 01/28/18 12:22 Dose: 100 mls/hr Potassium Phosphate 22.5 mmole (/ Sodium Chloride) 257.5 mls @ 86 mls/hr IV Q3H [facility] Stop: 01/27/18 14:59 Last Admin: 01/27/18 12:18 Dose: 86 mls/hr Acetaminophen 1,000 mg/ Premix 100 mls @ 400 mls/hr IV NOW ONE Stop: 01/27/18 21:29 Last Admin: 01/27/18 21:32 Dose: 400 mls/hr Ketamine HCl (Ketalar) 34 mg IV ASDIRECTED [facility] Lidocaine HCl (Xylocaine 2% Viscous) 15 ml PO ASDIRECTED [facility] Stop: 01/26/18 06:36 Last Admin: 01/26/18 06:45 Dose: 15 ml Lorazepam (Ativan) 1 mg IVPUSH ONETIME ONE Stop: 01/22/18 10:32 Last Admin: 01/22/18 10:39 Dose: 1 mg Magnesium Citrate (Citrate Of Magnesia) 296 ml PO ONETIME ONE Stop: 01/25/18 07:31 Last Admin: 01/25/18 07:45 Dose: 296 ml Magnesium Citrate (Citrate Of Magnesia) 296 ml PO Q8H [facility] Stop: 01/25/18 20:01 Last Admin: 01/25/18 20:49 Dose: Not Given Meropenem (Merrem) Confirm Administered Dose 500 mg .ROUTE .STK-MED ONE Stop: 01/22/18 07:04 Last Admin: 01/22/18 07:45 Dose: 500 mg Metoclopramide HCl (Reglan) 10 mg IVPUSH Q6H [facility] Last Admin: 01/26/18 05:59 Dose: 10 mg Neostigmine Methylsulfate (Neostigmine) Confirm Administered Dose 5 mg .ROUTE .STK-MED ONE Stop: 01/22/18 07:06 Ondansetron HCl (Zofran) Confirm Administered Dose 4 mg .ROUTE .STK-MED ONE Stop: 01/22/18 07:06 Propofol (Diprivan 20 Ml) Confirm Administered Dose 200 mg .ROUTE .STK-MED ONE Stop: 01/22/18 07:06 Rocuronium [place] (Zemuron) Confirm Administered Dose 50 mg .ROUTE .STK-MED ONE Stop: 01/22/18 07:06 Rocuronium [place] (Zemuron) Confirm Administered Dose 50 mg .ROUTE .STK-MED ONE Stop: 01/22/18 07:55 Scopolamine (Transderm-Scop) 1.5 mg TOP ONETIME ONE Stop: 01/22/18 06:01 Last Admin: 01/22/18 05:58 Dose: 1.5 mg Scopolamine (Transderm-Scop) 1.5 mg TOP ONETIME ONE Stop: 01/25/18 09:01 Last Admin: 01/25/18 09:01 Dose: 1.5 mg Sodium Biphosphate/Sodium Phosphate (Fleet Enema) 133 ml RECTAL ONETIME STA Stop: 01/25/18 19:52 Last Admin: 01/25/18 20:07 Dose: 1 bottle Trazodone HCl (Trazodone) 50 mg PO BEDTIME [facility] Last Admin: 01/26/18 00:12 Dose: Not Given - Exam General: Reports: Alert, Oriented, Cooperative, No Acute Distress HEENT: Reports: Pupils Equal, Mucous Membr. Moist/[place] Neck: Reports: Supple Lungs: Reports: Clear to Auscultation, Normal Respiratory Effort Cardiovascular: Reports: Regular Rate, Regular Rhythm GI/Abdominal Exam: Normal Bowel Sounds, Soft, Tender (Localized to incision site. ) Extremities: Normal Range of Motion Skin: Reports: Warm, Dry, Intact Wound/Incisions: Reports: Healing Well (Aquacel is over large incision. ) Neurological: Reports: No New Focal Deficit Psy/Mental Status: Reports: Alert, Normal Affect, Normal Mood
--- NOTE | 2018-01-29 08:21 | PN ---
DATE OF SERVICE: 01/28/2018 The patient has been afebrile with stable vital signs. NG tube came out last night, and she has continued to move her bowels. Abdominal x-ray looks good this morning, and we will begin a full-liquid diet. I think we will continue the ADMISSIONS SPECIALIST going today. We will restart her pertinent oral medications once again. Probably switch her over to oral pain medication tomorrow and, perhaps, home Friday. Cleve Vela MD Job #: [id number]
[2018-01-29] MEDS ORDERED: Mineral Oil/Petrolatum/Phenylephrine/Shark Liver Oil Oint 57 GM Tube RECTAL PRN (09:00)
--- NOTE | 2018-01-29 09:19 | CR ---
Abdomen 2V AP Flat Upright INDICATION: f/u ileus COMPARISON: None FINDINGS: 4 views. No free air. Continued improvement in small bowel gas pattern and associated air-fluid levels. NG tub e removed. Focal infiltrate left lung base again noted. No free air.
--- NOTE | 2018-01-29 10:41 | PN ---
DATE OF SERVICE: 01/27/2018 The patient has been afebrile with stable vital signs. She is feeling quite a bit better. She had well over 2 liters out of the NG tube in the last 24 hours. Supplementing for a bit over the last 12 hours, although she has not moving her bowels. Abdominal x-ray shows pattern of ileus. Plan will be to remove the NG tubing for today and otherwise maximize activity and work with pulmonary toilet. We will recheck her abdominal x-ray tomorrow. Potassium is marginally low and will give her some potassium supplementation today. We will probably be able to get the NG tube out tomorrow. Cleve Vela MD Job #: [id number]
--- NOTE | 2018-02-02 10:32 | OR ---
DATE OF PROCEDURE: 01/22/2018 PREOPERATIVE DIAGNOSES: 1. Uterine fibroids with abnormal vaginal bleeding and dyspareunia. 2. Incarcerated incisional hernia. POSTOPERATIVE DIAGNOSES: 1. Uterine fibroids with abnormal vaginal bleeding and dyspareunia. 2. Incarcerated multifocal incisional hernia. PROCEDURE: 1. Exploratory laparotomy with: a. Total abdominal hysterectomy with left salpingo-oophorectomy (right ovary left in place) (48433). b. Repair of incarcerated incisional hernia with mesh (27590, [id number]). c. Placement of Vicryl mesh to displace viscera from pelvic and abdominal wall to limit recurrent adhesion formation ([id number]). ANESTHESIA: General. REFINERY OPERATOR ASSISTANT: Lilly Sims PA-C and DAVID Friedman. INDICATION FOR PROCEDURE: This is a 48-year-old presenting with two problems as outlined above. Plan is to proceed with a Pfannenstiel incision and the concurrent hysterectomy, leaving one of the ovaries in place unless there is a compelling reason to remove both, and repair of the incisional hernia with mesh concurrently. Potential risks including bleeding, infection, recurrence of the hernia, injury to underlying viscera or urinary tract, as well as possibility of cardiopulmonary, septic, or hemorrhagic complications leading to were discussed, and the patient wishes to proceed. DETAILS OF PROCEDURE: The patient was taken to the operating room and placed in a supine position. After general endotracheal anesthesia was induced, a Marte catheter was inserted and vaginal and abdominal prep were performed. A Pfannenstiel-type incision was then made and carried down through the skin and subcutaneous tissue and anterior rectus sheath. Subrectus sheath flaps were then raised superiorly and inferiorly, and the midline peritoneum was then evacuated. The patient was noted to have no significant pelvic fluid. The uterus was moderately enlarged. The left ovary had some cystic changes, and the right ovary appeared to be entirely normal. There was no endometriosis or other compelling reason for bilateral salpingo-oophorectomy, so we elected to leave the right ovary in place at this time. The uterus was then retracted anteriorly, and on the left side, the infundibulopelvic, broad and round ligaments were divided with ZOYA stapler. On the right side, the uterine tube, broad ligament, and round ligament were likewise divided with the ZOYA sofie. Peritoneal reflection of the bladder on the uterus was then divided and the bladder dissected down onto the upper vagina. The uterosacral ligaments were then clamped bilaterally and divided and initial sutures placed there with #1 Vicryl stitch. The vaginal cuff was then created with division of the vagina just immediately adjacent to the cervix with electrocautery, and the specimen consisting of the uterus and left tube and ovary were then delivered from the field. Vaginal cuff closure was then accomplished with continuation of the #1 Vicryl stitches at the uterosacral ligaments, these were well preserved, and this appeared to provide good suspension of the vaginal cuff. The area was inspected. No bleeding or other problems were noted, and at that point, the area was irrigated with meropenem- containing saline solution. New gown and gloves and new set of instruments were then obtained for the hernia repair. From within, the hernia, which was more or less in the periumbilical area and on palpation was multifocal, was identified. The hernia sac over the largest of those areas was then excised and the fascia repair accomplished from within with a running #2 Vicryl stitch. A Ventralex ST hernia mesh measuring 19 x 22 cm was then placed with the long axis in the transverse orientation, which would provide the best coverage of the hernia. Through small stab wounds, the mesh was pulled up where sutures had been placed on the polypropylene side of the mesh. Mesh was then soaked with meropenem- containing saline solution. Once the mesh was pulled up through the small stab wounds and affixed up against the abdominal wall, the mesh was then further affixed on the underside of the mesh in the shelf with titanium tacking screws. The mesh appeared to be well affixed at this point, providing good coverage around the hernias in all areas. At this point, Austen-Knight drain was taken through a stab wound in the right mid abdomen and taken down into the area of the vaginal cuff to limit pelvic adhesion formation. Vicryl mesh was then placed into the depths of the pelvis along the pelvic sidewalls and up against the abdominal wall. The midline peritoneum was then approximated with #2 Vicryl stitch, as was the anterior rectus sheath, and the skin closed with a 4-0 Vicryl subcuticular stitch. Dressing was applied. The patient was taken to the recovery room in satisfactory condition. Physician ob gyn physician assistant, Lilly Sims, played an essential role in assisting in this case, helping to position the patient, retract structures as needed, as well as suturing and cutting sutures when indicated. Her presence improved patient safety and decreased the operative time. Cleve Vela MD Job #: [id number] MTDD
== END 2018-01-29 09:00 | disposition home or self-care (01) | DRG 519 ==
LOC: JP.SDSSCHI 05:28 → JP.SDS 05:28 → EDSTATUS 09:45 → JP.2SS 09:55
PROVIDERS: ADMIT Surgery; ATTEND Surgery
PROC: 0UT90ZZ Resection of Uterus, Open Approach (ICD-10-PCS; 2018-01-22)
PROC: 0UB60ZZ Excision of Left Fallopian Tube, Open Approach (ICD-10-PCS; 2018-01-22)
PROC: 0UB10ZZ Excision of Left Ovary, Open Approach (ICD-10-PCS; 2018-01-22)
PROC: 0WUF0JZ Supplement Abdominal Wall with Synthetic Substitute, Open Approach (ICD-10-PCS; 2018-01-22)
PROC: 3E0M05Z Introduction of Adhesion Barrier into Peritoneal Cavity, Open Approach (ICD-10-PCS; 2018-01-22)
PROC: 0D9670Z Drainage of Stomach with Drainage Device, Via Natural or Artificial Opening (ICD-10-PCS; principal; 2018-01-26)
DX: D25.9 Leiomyoma of uterus, unspecified (principal); K43.0 Incisional hernia with obstruction, without gangrene; K56.7 Ileus, unspecified; K50.90 Crohn's disease, unspecified, without complications; N93.8 Other specified abnormal uterine and vaginal bleeding; N93.9 Abnormal uterine and vaginal bleeding, unspecified; M62.838 Other muscle spasm; M79.7 Fibromyalgia; Z90.49 Acquired absence of other specified parts of digestive tract; Z88.1 Allergy status to other antibiotic agents; Z88.2 Allergy status to sulfonamides; Z79.899 Other long term (current) drug therapy; F17.200 Nicotine dependence, unspecified, uncomplicated; N94.10 Unspecified dyspareunia
CPT/HCPCS: 36415; 74019; 74019-26; 80048; 80053; 83735; 84100; 85027; 88307; 94762; A9270-GY; C1781; C9113; J0131; J0171; J1100; J1170; J1956; J2060; J2185; J2405; J2704; J2710; J2765; J2795; J3010; J3410; J3490; J7030; J7042; J7050; J7120; J7500

== ENCOUNTER 2018-02-01 07:32 | Emergency (ER) | payer BC ==
[2018-02-01] MEDS ORDERED: Sodium Chloride 0.9% 10 ML Syringe FLUSH PRN (08:05)
[2018-02-01] MEDS ORDERED: Ondansetron 4 MG/2 ML SDV IVPUSH ONE (08:05)
--- NOTE | 2018-02-01 08:10 | EDM.PDOC ---
ED HPI GENERAL MEDICAL PROBLEM - General Chief Complaint: Gastrointestinal Problem Stated Complaint: HAD HERNIA SURGERY/VOMITING/NAUSEA Time Seen by Provider: 02/01/18 08:00 Source of Information: Reports: Patient, Family, RN Notes Reviewed History Limitations: Reports: No Limitations - History of Present Illness INITIAL COMMENTS - FREE TEXT/NARRATIVE: 48-year-old female presents emergency department today complaint of nausea and dry heaves as well as diarrhea she recently underwent hernia repair with hysterectomy was discharged from the hospital on 29 January, she states over the last 24 hours her symptoms have gotten worse, she was using Dilaudid for pain control however she stopped taking the medication because she does not like the way it makes her feel Abdominal Pain Score (Numeric/FACES): 4 - Related Data Allergies Allergy/AdvReac Type Severity Reaction Status Date / Time cephalexin [Cephalexin] Allergy Mild Rash Verified 01/22/18 06:03 doxycycline Allergy Mild Rash Verified 01/22/18 06:03 Sulfa (Sulfonamide Allergy Mild Rash Verified 01/22/18 06:03 Antibiotics) sulfamethoxazole Allergy Mild Rash Verified 01/22/18 06:03 [From Septra] trimethoprim [From Septra] Allergy Mild Rash Verified 01/22/18 06:03 metronidazole [From Flagyl] Allergy Hives Verified 01/22/18 06:03 shrimp AdvReac Nausea and Verified 01/22/18 11:42 Vomiting Home Meds: Home Meds Adalimumab [Humira] 40 mg SQ ASDIRECTED 09/06/17 [History] azaTHIOprine [Imuran] 50 mg PO DAILY 09/06/17 [History] traZODone 50 mg PO BEDTIME 09/06/17 [History] Ibuprofen 200 mg PO Q6H PRN 01/20/18 [History] Acetaminophen [Tylenol Extra Strength] 1,000 mg PO Q6H tablet 01/29/18 [Rx] HYDROmorphone [Dilaudid] 2 - 4 mg PO Q4H PRN #40 tablet 01/29/18 [Rx] Past Medical History HEENT History: Reports: Impaired Vision, Other (See Below) Other HEENT History: wears reading glasses Gastrointestinal History: Reports: Colon Polyp, GERD, Inflammatory Bowel Disease , Other (See Below) Other Gastrointestinal History: crohns, gallstones, absess after bowel resection PAINTER BOTTOM History: Reports: 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 Uterine Bleeding, Other PAINTER BOTTOM History: History of tubal Musculoskeletal History: Reports: Arthritis, Fracture Neurological History: Reports: Migraines Dermatologic History: Reports: Eczema - Infectious Disease History Infectious Disease History: Reports: C-Difficile, Chicken Pox 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 - Past Surgical History GI Surgical History: Reports: Appendectomy, Colonoscopy, Hernia Repair/Other, Patti Fundoplication, Small Bowel Female Surgical History: Reports: Hysterectomy, Tubal Ligation Neurological Surgical History: Reports: Discectomy, Lumbar Spine Other Musculoskeletal Surgeries/Procedures:: History of back surgery Social & Family History - Family History HEENT: Reports: None Cardiac: Reports: Afib Respiratory: Reports: COPD Musculoskeletal: Reports: Arthritis Hematologic: Reports: None Oncologic: Reports: Colon, Lung - Tobacco Use Smoking Status *Q: Heavy Tobacco Smoker Years of Tobacco use: 30 Packs/Tins Daily: 0.5 - Caffeine Use Caffeine Use: Reports: Soda - Recreational Drug Use Recreational Drug Use: No - Living Situation & Occupation Living situation: Reports: 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.) ED ROS GENERAL - Review of Systems Review Of Systems: See Below Constitutional: Reports: No Symptoms HEENT: Reports: No Symptoms Respiratory: Reports: No Symptoms Cardiovascular: Reports: No Symptoms GI/Abdominal: Reports: Abdominal Pain, Diarrhea, Flatus, Nausea, Vomiting (dry heaves) : Reports: No Symptoms Musculoskeletal: Reports: No Symptoms Skin: Reports: No Symptoms ED EXAM, GI/ABD - Physical Exam Exam: See Below Text/Narrative:: General: Female, ill-appearing, alert and oriented x3 HEENT: head is atraumatic normocephalic, eyes pupils equal round reactive to light, sclera clear no conjunctivitis appreciated. Ears tympanic membranes clear and sloan landmarks and light reflex are present bilaterally canals are clear. Nose no septal deviation, nares are clear, no blood present. Mouth mucosa is moist and pink no erythema or exudate noted in soft palate, tongue is midline uvula is midline , dentition is intact. Neck: Supple no thyromegaly no tracheal deviation. Nodes: Cervical nodes subclavicular nodes nontender no palpable lymphadenopathy noted. Lungs: clear to auscultation bilaterally with symmetrical respirations, no adventitious noise appreciated. CV: Tachycardic rate and rhythm S1 and S2 appreciated no murmurs rubs or gallops noted. Abdomen: Soft, generalized tenderness to palpation, no palpable masses or organomegaly appreciated, no distention no guarding bowel sounds are present, surgical wounds clean dry and intact. Neuro: Cranial nerves II through XII grossly intact Skin: Warm and dry, intact Extremities: No lower extremity edema appreciated, pedal pulse is +2. Course - Vital Signs Last Recorded V/S: Last Vital Signs Temp 97 F 02/01/18 07:49 Pulse 95 02/01/18 10:38 Resp 19 02/01/18 10:38 BP 118/85 02/01/18 10:38 Pulse Ox 98 02/01/18 10:38 - Orders/Labs/Meds Orders: Active Orders 24 hr Category Date Time Status Peripheral IV Care [RC] . DIRECTED Care 02/01/18 08:05 Active Abdomen 1V Upright [CR] Urgent Exams 02/01/18 08:05 Taken UA W/MICROSCOPIC [URIN] Urgent Lab 02/01/18 09:41 Ordered Lactated Ringers [Ringers, Lactated] 1,000 ml Med 02/01/18 08:15 Active IV ASDIRECTED Sodium Chloride 0.9% [Saline Flush] Med 02/01/18 08:05 Active 10 ml FLUSH ASDIRECTED PRN ED Antiemetic Medication Reflex [OM.PC] Click to Edit Oth 02/01/18 08:05 Ordered Peripheral IV Insertion Adult [OM.PC] Urgent Oth 02/01/18 08:05 Ordered Medication Orders Lactated Ringer's (Ringers, Lactated) 1,000 mls @ 999 mls/hr IV ASDIRECTED [facility] Last Admin: 02/01/18 08:23 Dose: 999 mls/hr Sodium Chloride (Saline Flush) 10 ml FLUSH ASDIRECTED PRN PRN Reason: Keep Vein Open Last Admin: 02/01/18 08:21 Dose: 10 ml Labs: Laboratory Tests 02/01/18 02/01/18 02/01/18 Range/Units 08:24 08:24 08:24 WBC 19.4 H (4.5-11.0) K/uL RBC 5.32 (3.30-5.50) M/uL Hgb 15.9 H D (12.0-15.0) g/dL Hct 45.2 (36.0-48.0) % MCV 85 (80-98) fL MCH 30 (27-31) pg MCHC 35 (32-36) % Plt Count 546 H (150-400) K/uL Neut % (Auto) 81 H (36-66) % Lymph % (Auto) 9 L (24-44) % [place] % (Auto) 5 (2-6) % Eos % (Auto) 5 H (2-4) % Baso % (Auto) 0 (0-1) % Sodium 138 L (140-148) mmol/L Potassium 4.3 (3.6-5.2) mmol/L Chloride 102 (100-108) mmol/L Carbon Dioxide 22 (21-32) mmol/L Anion Gap 18.3 H (5.0-14.0) mmol/L BUN 10 D (7-18) mg/dL Creatinine 1.0 (0.6-1.0) mg/dL Est Cr Clr Drug Dosing 65.81 mL/min Estimated GFR (MDRD) 60 (>60) Glucose 125 H (74-106) mg/dL Lactic Acid 1.6 (0.4-2.0) mmol/L Calcium 9.4 (8.5-10.1) mg/dL Total Bilirubin 0.5 (0.2-1.0) mg/dL AST 21 (15-37) U/L ALT 32 (12-78) U/L Alkaline Phosphatase 84 (46-116) U/L Total Protein 6.7 (6.4-8.2) g/dL Albumin 3.1 L (3.4-5.0) g/dL Globulin 3.6 H (2.3-3.5) g/dL Albumin/Globulin Ratio 0.9 L (1.2-2.2) Lipase 306 (73-393) U/L Urine Color Urine Appearance Urine pH (4.5-8.0) Ur Specific [place] (1.008-1.030) Urine Protein (NEGATIVE) mg/dL Urine Glucose (UA) (NEGATIVE) mg/dL Urine Ketones (NEGATIVE) mg/dL Urine Occult Blood (NEGATIVE) Urine Nitrite (NEGATIVE) Urine Bilirubin (NEGATIVE) Urine Urobilinogen (NORMAL) mg/dL Ur Leukocyte Esterase (NEGATIVE) Urine RBC (0-5) Urine WBC (0-5) Ur Epithelial Cells Amorphous Sediment Urine Bacteria Urine Mucus 02/01/18 Range/Units 09:41 WBC (4.5-11.0) K/uL RBC (3.30-5.50) M/uL Hgb (12.0-15.0) g/dL Hct (36.0-48.0) % MCV (80-98) fL MCH (27-31) pg MCHC (32-36) % Plt Count (150-400) K/uL Neut % (Auto) (36-66) % Lymph % (Auto) (24-44) % [place] % (Auto) (2-6) % Eos % (Auto) (2-4) % Baso % (Auto) (0-1) % Sodium (140-148) mmol/L Potassium (3.6-5.2) mmol/L Chloride (100-108) mmol/L Carbon Dioxide (21-32) mmol/L Anion Gap (5.0-14.0) mmol/L BUN (7-18) mg/dL Creatinine (0.6-1.0) mg/dL Est Cr Clr Drug Dosing mL/min Estimated GFR (MDRD) (>60) Glucose (74-106) mg/dL Lactic Acid (0.4-2.0) mmol/L Calcium (8.5-10.1) mg/dL Total Bilirubin (0.2-1.0) mg/dL AST (15-37) U/L ALT (12-78) U/L Alkaline Phosphatase (46-116) U/L Total Protein (6.4-8.2) g/dL Albumin (3.4-5.0) g/dL Globulin (2.3-3.5) g/dL Albumin/Globulin Ratio (1.2-2.2) Lipase (73-393) U/L Urine Color Yellow Urine Appearance Slightly cloudy Urine pH 6.0 (4.5-8.0) Ur Specific [place] 1.005 L (1.008-1.030) Urine Protein Negative (NEGATIVE) mg/dL Urine Glucose (UA) Normal (NEGATIVE) mg/dL Urine Ketones Negative (NEGATIVE) mg/dL Urine Occult Blood Negative (NEGATIVE) Urine Nitrite Negative (NEGATIVE) Urine Bilirubin Negative (NEGATIVE) Urine Urobilinogen Normal (NORMAL) mg/dL Ur Leukocyte Esterase Negative (NEGATIVE) Urine RBC 0-5 (0-5) Urine WBC 0-5 (0-5) Ur Epithelial Cells Few Amorphous Sediment Not seen Urine Bacteria Moderate Urine Mucus Few Meds: Medications Generic Name Dose Route Start Last Admin Trade Name Freq PRN Reason Stop Dose Admin Lactated Ringer's 1,000 mls @ 999 mls/hr 02/01/18 08:15 02/01/18 08:23 Ringers, Lactated IV 999 mls/hr ASDIRECTED MILDRED Administration Sodium Chloride 10 ml 02/01/18 08:05 02/01/18 08:21 Saline Flush FLUSH 10 ml ASDIRECTED PRN Administration Keep Vein Open Discontinued Medications Generic Name Dose Route Start Last Admin Trade Name Freq PRN Reason Stop Dose Admin Ondansetron HCl 4 mg 02/01/18 08:05 02/01/18 08:20 Zofran IVPUSH 02/01/18 08:06 4 mg ONETIME ONE Administration Departure - Departure Time of Disposition: 10:47 Disposition: Home, Self-Care 01 Condition: Fair Clinical Impression: Postoperative ileus - Discharge Information Referrals: Markus Gaspar MD [Primary Care Provider] - Forms: ED Department Discharge Additional Instructions: Try to return the sample cup to the hospital lab if possible, use Zofran as needed for nausea and vomiting symptoms, use tramadol as needed for pain control , please follow-up with Dr. Vela clinic tomorrow morning if no improvement - My Orders Last 24 Hours: My Active Orders 02/01/18 08:05 Peripheral IV Care [RC] . DIRECTED Abdomen 1V Upright [CR] Urgent Sodium Chloride 0.9% [Saline Flush] 10 ml FLUSH ASDIRECTED PRN ED Antiemetic Medication Reflex [OM.PC] Click to Edit Peripheral IV Insertion Adult [OM.PC] Urgent 02/01/18 08:15 Lactated Ringers [Ringers, Lactated] 1,000 ml IV ASDIRECTED 02/01/18 09:41 UA W/MICROSCOPIC [URIN] Urgent - Assessment/Plan Last 24 Hours: My Active Orders 02/01/18 08:05 Peripheral IV Care [RC] . DIRECTED Abdomen 1V Upright [CR] Urgent Sodium Chloride 0.9% [Saline Flush] 10 ml FLUSH ASDIRECTED PRN ED Antiemetic Medication Reflex [OM.PC] Click to Edit Peripheral IV Insertion Adult [OM.PC] Urgent 02/01/18 08:15 Lactated Ringers [Ringers, Lactated] 1,000 ml IV ASDIRECTED 02/01/18 09:41 UA W/MICROSCOPIC [URIN] Urgent Plan: Assessment Acuity = acute Site and laterality = postoperative ileus Etiology = surgery Manifestations = nausea, diarrhea Location of injury = Home Lab values = WBC elevated 19.4 consistent leukocytosis, CMP, urinalysis unremarkable abdominal x-ray I did review films myself I cannot appreciate any acute process, the official read from radiology is pending Plan Called discussed case with Dr. Vela general surgery recommended tramadol for pain Zofran as needed for nausea and vomiting symptoms stool collection for Clostridium difficile, she is not had any diarrheal symptoms while in the emergency department she would like to take a sample cup home and then return that to the ED or to clinic for evaluation. Dr. Vela asked if she could follow- up in clinic tomorrow This note was dictated using [employer] voice recognition software please call with any questions on syntax or grammar.
[2018-02-01] MEDS ORDERED: Lactated Ringers 1,000 ML IV SCH (08:15)
[2018-02-01 10:39] VITALS: BP 118/85
--- NOTE | 2018-02-02 08:57 | CR ---
Abdomen 1V Upright CLINICAL HISTORY: Abdominal pain FINDINGS: There are surgical sofie in the abdominal pelvic region. There is some mild gaseous diste ntion of small bowel and colon. This is improved since prior study. IMPRESSION: Diminishing small bowel distention
== END 2018-02-01 10:59 | disposition home or self-care (01) ==
LOC: JP.ED 07:32
DX: K56.7 Ileus, unspecified (principal); F17.210 Nicotine dependence, cigarettes, uncomplicated; K21.9 Gastro-esophageal reflux disease without esophagitis; M19.90 Unspecified osteoarthritis, unspecified site; Z79.899 Other long term (current) drug therapy; Z88.8 Allergy status to other drugs, medicaments and biological substances; Z88.1 Allergy status to other antibiotic agents; Z91.013 Allergy to seafood; Z88.2 Allergy status to sulfonamides
CPT/HCPCS: 36415; 74018; 80053; 81001; 83605; 83690; 85025; 87493; 96361; 96374; 99284; J2405; J7050; J7120

== ENCOUNTER 2018-03-10 03:54 | Inpatient (IN) | payer BC ==
[2018-03-10] MEDS ORDERED: Ondansetron 4 MG/2 ML SDV ONE ×2 (04:16→09:30)
[2018-03-10] MEDS ORDERED: HYDROmorphone 0.5 MG/0.5 ML Syringe ONE (04:17)
[2018-03-10] MEDS ORDERED: Ondansetron 4 MG/2 ML SDV IVPUSH ONE ×3 (04:43→08:00)
[2018-03-10] MEDS ORDERED: HYDROmorphone 0.5 MG/0.5 ML Syringe IVPUSH ONE ×3 (04:44→06:25)
[2018-03-10] MEDS ORDERED: Sodium Chloride 0.9% 1,000 ML IV SCH ×2 (04:45→05:00)
--- NOTE | 2018-03-10 04:53 | EDM.PDOC ---
ED HPI GENERAL MEDICAL PROBLEM - General Chief Complaint: Abdominal Pain Stated Complaint: ABD PAIN Time Seen by Provider: 03/10/18 04:45 Source of Information: Reports: Patient, Family History Limitations: Reports: No Limitations - History of Present Illness INITIAL COMMENTS - FREE TEXT/NARRATIVE: pt arrived with severe upper abdomanal pain which started about 8 pm an has become progressively worse. She has been wretching but can,t vomit because of the kadi that she had. She has had multiple abdomanal surgeries. She has not been passing gas. She does have a history of crohns disease. Onset: Today, Other ( started about 8pm. ) Duration: Hour(s):, Getting Worse Location: Reports: Abdomen, Other (pt has pain in her upper abdoman. ) Associated Symptoms: Reports: Nausea/Vomiting Abdominal Pain Score (Numeric/FACES): 10 - Related Data Allergies Allergy/AdvReac Type Severity Reaction Status Date / Time cephalexin [Cephalexin] Allergy Mild Rash Verified 03/10/18 04:56 doxycycline Allergy Mild Rash Verified 03/10/18 04:56 Sulfa (Sulfonamide Allergy Mild Rash Verified 03/10/18 04:56 Antibiotics) sulfamethoxazole Allergy Mild Rash Verified 03/10/18 04:56 [From Septra] trimethoprim [From Septra] Allergy Mild Rash Verified 03/10/18 04:56 metronidazole [From Flagyl] Allergy Hives Verified 03/10/18 04:56 shrimp AdvReac Nausea and Verified 03/10/18 04:56 Vomiting Home Meds: Home Meds Adalimumab [Humira] 40 mg SQ ASDIRECTED 09/06/17 [History] traZODone 50 mg PO BEDTIME 09/06/17 [History] Ibuprofen 200 mg PO Q6H PRN 01/20/18 [History] Acetaminophen [Tylenol Extra Strength] 1,000 mg PO Q6H tablet 01/29/18 [Rx] Past Medical History HEENT History: Reports: Impaired Vision, Other (See Below) Other HEENT History: wears reading glasses Gastrointestinal History: Reports: Colon Polyp, GERD, Inflammatory Bowel Disease , Other (See Below) Other Gastrointestinal History: crohns, gallstones, absess after bowel resection 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: 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, Other 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 Musculoskeletal History: Reports: Arthritis, Fracture Neurological History: Reports: Migraines Dermatologic History: Reports: Eczema - Infectious Disease History Infectious Disease History: Reports: C-Difficile, Chicken Pox 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 - Past Surgical History GI Surgical History: Reports: Appendectomy, Colonoscopy, Hernia Repair/Other, Patti Fundoplication, Small Bowel Female Surgical History: Reports: Hysterectomy, Tubal Ligation Neurological Surgical History: Reports: Discectomy, Lumbar Spine Other Musculoskeletal Surgeries/Procedures:: History of back surgery Social & Family History - Family History HEENT: Reports: None Cardiac: Reports: Afib Respiratory: Reports: COPD Musculoskeletal: Reports: Arthritis Hematologic: Reports: None Oncologic: Reports: Colon, Lung - Tobacco Use Smoking Status *Q: Never Smoker - Caffeine Use Caffeine Use: Reports: Coffee - Recreational Drug Use Recreational Drug Use: No - Living Situation & Occupation Living situation: Reports: 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 ) : Reports: No Symptoms Musculoskeletal: Reports: No Symptoms Skin: Reports: No Symptoms Neurological: Reports: No Symptoms ED EXAM, GI/ABD - Physical Exam Exam: See Below Text/Narrative:: pt is very uncomfortable and her pain is mainly in the upper abdoman. Exam Limited By: No Limitations General Appearance: Alert, Anxious, Severe Distress, Other ( no sign of jaundice ) Ears: Normal TMs Nose: Normal Inspection Throat/Mouth: Normal Inspection Head: Atraumatic Neck: Normal Inspection Respiratory/Chest: No Respiratory Distress Cardiovascular: Regular Rate, Rhythm, Tachycardia GI/Abdominal Exam: Guarding, Tender, Other (pt is very tender in the upper abdoman. ) (Female) Exam: Deferred Rectal (Female) Exam: Deferred, Other (pt is not passing gas. ) Back Exam: Normal Inspection Extremities: Normal Inspection Neurological: Alert, Oriented, Normal Cognition Psychiatric: Anxious Course - Vital Signs Last Recorded V/S: Last Vital Signs Temp 36.7 C 03/12/18 15:00 Pulse 91 03/12/18 15:00 Resp 18 03/12/18 15:00 BP 113/63 03/12/18 15:00 Pulse Ox 93 L 03/12/18 15:00 - Orders/Labs/Meds Orders: Medication Orders Bisacodyl (Dulcolax) 10 mg PO BID [facility] Last Admin: 03/12/18 11:34 Dose: 10 mg Cyclobenzaprine HCl (Flexeril) 10 mg PO Q6H PRN PRN Reason: muscle spasms Last Admin: 03/11/18 22:03 Dose: 10 mg Admin: 03/11/18 15:57 Dose: 10 mg Diphenhydramine HCl (Benadryl) 0 mg IVPUSH Q4H PRN PRN Reason: Itching Last Admin: 03/11/18 22:05 Dose: 50 mg Admin: 03/11/18 13:50 Dose: 50 mg Admin: 03/11/18 02:41 Dose: 50 mg Docusate Sodium (Colace) 100 mg PO BID [facility] Last Admin: 03/12/18 11:34 Dose: 100 mg Hydromorphone HCl (Dilaudid Supervisor Powdered Sugar 15 Mg In Ns 30 Ml) 0 mg IV ASDIRECTED PRN; Protocol PRN Reason: HOME HEALTH ATTENDANT PAIN CONTROL Last Admin: 03/12/18 16:50 Dose: 15 mg Admin: 03/12/18 03:31 Dose: 15 mg Admin: 03/11/18 13:49 Dose: 15 mg Admin: 03/11/18 05:47 Dose: 15 mg Admin: 03/10/18 19:47 Dose: 15 mg Admin: 03/10/18 07:57 Dose: 15 mg Dextrose/Lactated Ringer's (Dextrose 5%-Lactated Ringers) 1,000 mls @ 100 mls/ hr IV ASDIRECTED [facility] Last Admin: 03/12/18 00:04 Dose: 100 mls/hr Naloxone HCl (Narcan) 0.1 mg IV ASDIRECTED PRN PRN Reason: decreased respiratory rate Scopolamine Patch 0 each TOP DAILY [facility] Last Admin: 03/12/18 11:36 Dose: Pantoprazole Sodium (Protonix Iv) 40 mg IV DAILY [facility] Last Admin: 03/12/18 11:36 Dose: 40 mg Admin: 03/11/18 10:47 Dose: 40 mg Scopolamine (Transderm-Scop) 1.5 mg TOP Q72H [facility] Last Admin: 03/10/18 08:43 Dose: 1.5 mg Labs: Laboratory Tests 03/10/18 03/10/18 03/10/18 Range/Units 04:41 04:41 04:41 WBC 24.2 H (4.5-11.0) K/uL RBC 5.42 (3.30-5.50) M/uL Hgb 16.4 H (12.0-15.0) g/dL Hct 46.1 (36.0-48.0) % MCV 85 (80-98) fL MCH 30 (27-31) pg MCHC 36 (32-36) % Plt Count 409 H (150-400) K/uL Neut % (Auto) 87 H (36-66) % Lymph % (Auto) 7 L (24-44) % [place] % (Auto) 5 (2-6) % Eos % (Auto) 0 L (2-4) % Baso % (Auto) 0 (0-1) % Sodium 134 L (140-148) mmol/L Potassium 4.1 (3.6-5.2) mmol/L Chloride 98 L (100-108) mmol/L Carbon Dioxide 20 L (21-32) mmol/L Anion Gap 20.1 H (5.0-14.0) mmol/L BUN 24 H D (7-18) mg/dL Creatinine 1.1 H (0.6-1.0) mg/dL Est Cr Clr Drug Dosing 59.82 mL/min Estimated GFR (MDRD) 53 L (>60) Glucose 207 H (74-106) mg/dL Calcium 10.1 (8.5-10.1) mg/dL Total Bilirubin 0.8 D (0.2-1.0) mg/dL AST 12 L (15-37) U/L ALT 18 (12-78) U/L Alkaline Phosphatase 87 (46-116) U/L C-Reactive Protein 0.70 H (0.0-0.3) mg/dL Total Protein 7.7 (6.4-8.2) g/dL Albumin 4.0 (3.4-5.0) g/dL Globulin 3.7 H (2.3-3.5) g/dL Albumin/Globulin Ratio 1.1 L (1.2-2.2) Amylase (25-115) U/L Lipase (73-393) U/L 03/10/18 Range/Units 04:42 WBC (4.5-11.0) K/uL RBC (3.30-5.50) M/uL Hgb (12.0-15.0) g/dL Hct (36.0-48.0) % MCV (80-98) fL MCH (27-31) pg MCHC (32-36) % Plt Count (150-400) K/uL Neut % (Auto) (36-66) % Lymph % (Auto) (24-44) % [place] % (Auto) (2-6) % Eos % (Auto) (2-4) % Baso % (Auto) (0-1) % Sodium (140-148) mmol/L Potassium (3.6-5.2) mmol/L Chloride (100-108) mmol/L Carbon Dioxide (21-32) mmol/L Anion Gap (5.0-14.0) mmol/L BUN (7-18) mg/dL Creatinine (0.6-1.0) mg/dL Est Cr Clr Drug Dosing mL/min Estimated GFR (MDRD) (>60) Glucose (74-106) mg/dL Calcium (8.5-10.1) mg/dL Total Bilirubin (0.2-1.0) mg/dL AST (15-37) U/L ALT (12-78) U/L Alkaline Phosphatase (46-116) U/L C-Reactive Protein (0.0-0.3) mg/dL Total Protein (6.4-8.2) g/dL Albumin (3.4-5.0) g/dL Globulin (2.3-3.5) g/dL Albumin/Globulin Ratio (1.2-2.2) Amylase 71 (25-115) U/L Lipase 193 (73-393) U/L Meds: Medications Generic Name Dose Route Start Last Admin Trade Name Freq PRN Reason Stop Dose Admin Bisacodyl 10 mg 03/12/18 09:00 03/12/18 11:34 Dulcolax PO 10 mg BID [facility] Administration Cyclobenzaprine HCl 10 mg 03/11/18 07:52 03/11/18 22:03 Flexeril PO 10 mg Q6H PRN Administration muscle spasms Diphenhydramine HCl 0 mg 03/11/18 02:24 03/11/18 22:05 Benadryl IVPUSH 50 mg Q4H PRN Administration Itching Docusate Sodium 100 mg 03/12/18 09:00 03/12/18 11:34 Colace PO 100 mg BID [facility] Administration Hydromorphone HCl 0 mg 03/10/18 07:32 03/12/18 16:50 Dilaudid Supervisor Powdered Sugar 15 Mg In Ns 30 Ml IV 15 mg ASDIRECTED PRN Administration HOME HEALTH ATTENDANT PAIN CONTROL Protocol Dextrose/Lactated Ringer's 1,000 mls @ 100 mls/hr 03/11/18 15:15 03/12/18 00: 04 Dextrose 5%-Lactated Ringers IV 100 mls/hr ASDIRECTED [facility] Administration Naloxone HCl 0.1 mg 03/10/18 07:32 Narcan IV ASDIRECTED PRN decreased respiratory rate Scopolamine Patch 0 each 03/12/18 07:15 03/12/18 11:36 TOP Not Given DAILY [facility] Pantoprazole Sodium 40 mg 03/11/18 09:00 03/12/18 11:36 Protonix Iv IV 40 mg DAILY [facility] Administration Scopolamine 1.5 mg 03/10/18 08:45 03/10/18 08:43 Transderm-Scop TOP 1.5 mg Q72H [facility] Administration Discontinued Medications Generic Name Dose Route Start Last Admin Trade Name Freq PRN Reason Stop Dose Admin Bupivacaine HCl Confirm 03/12/18 06:45 03/12/18 07:48 Marcaine 0.5% Administered 03/12/18 06:46 10 ml Dose Administration 50 ml .ROUTE .STK-MED ONE Ropivacaine 38 ml/ 0 ml 03/10/18 10:30 03/10/18 10:53 Dexamethasone 8 mg/ NERVRT 80 syringe Epinephrine HCl 0.4 mg/ Sodium ASDIRECTED [facility] Administration Chloride 39.6 ml Ropivacaine 38 ml/ 0 ml 03/12/18 08:00 03/12/18 07:40 Dexamethasone 8 mg/ NERVRT 80 syringe Epinephrine HCl 0.4 mg/ Sodium ASDIRECTED [facility] Administration Chloride 39.6 ml Dexamethasone Confirm 03/10/18 09:30 Dexamethasone Administered 03/10/18 09:31 Dose 4 mg .ROUTE .STK-MED ONE Diphtheria/Tetanus/Acell Pertussis 0.5 ml 03/11/18 09:00 03/11/18 14:19 Adacel IM 03/11/18 09:01 Not Given .ONCE ONE Fentanyl Confirm 03/10/18 09:30 Sublimaze Administered 03/10/18 09:31 Dose 250 mcg .ROUTE .STK-MED ONE Fentanyl Confirm 03/10/18 11:29 Sublimaze Administered 03/10/18 11:30 Dose 250 mcg .ROUTE .STK-MED ONE Fentanyl Confirm 03/12/18 06:57 Sublimaze Administered 03/12/18 06:58 Dose 100 mcg .ROUTE .STK-MED ONE Glycopyrrolate Confirm 03/10/18 09:30 Robinul Administered 03/10/18 09:31 Dose 1 mg .ROUTE .STK-MED ONE Hydromorphone HCl 0.5 mg 03/10/18 04:44 03/10/18 04:50 Dilaudid IVPUSH 03/10/18 04:45 0.5 mg ONETIME ONE Administration Hydromorphone HCl 0.5 mg 03/10/18 05:04 03/10/18 05:12 Dilaudid IVPUSH 03/10/18 05:05 0.5 mg ONETIME ONE Administration Hydromorphone HCl 0.5 mg 03/10/18 06:25 03/10/18 06:30 Dilaudid IVPUSH 03/10/18 06:26 0.5 mg ONETIME ONE Administration Hydromorphone HCl Confirm 03/10/18 04:17 03/10/18 12:55 Dilaudid Administered 03/10/18 04:18 Not Given Dose 0.5 mg .ROUTE .STK-MED ONE Hydroxyzine HCl 100 mg 03/10/18 08:45 03/10/18 08:43 Vistaril IM 03/10/18 08:46 100 mg ONETIME ONE Administration Sodium Chloride 1,000 mls @ 999 mls/hr 03/10/18 04:45 03/10/18 04:50 Normal Saline IV 999 mls/hr ASDIRECTED [facility] Administration Sodium Chloride 1,000 mls @ 500 mls/hr 03/10/18 05:00 03/10/18 05:46 Normal Saline IV 03/10/18 07:40 500 mls/hr ASDIRECTED [facility] Administration Sodium Chloride 75 mls @ 3.4 mls/sec 03/10/18 05:27 03/10/18 05:35 Normal Saline IV 03/10/18 05:28 3.4 mls/sec ASDIRECTED [facility] Administration Lactated Ringer's 1,000 mls @ 300 mls/hr 03/10/18 07:45 03/10/18 08:00 Ringers, Lactated IV 300 mls/hr ASDIRECTED [facility] Administration Meropenem 500 mg/ Sodium 50 mls @ 100 mls/hr 03/10/18 10:30 03/10/18 10:18 Chloride IV 03/10/18 10:59 100 mls/hr ONETIME ONE Administration Lidocaine HCl/Dextrose 2 gm in 500 mls @ 22.5 mls/hr 03/10/18 10:30 03/10/18 13:48 Lidocaine 2 Gm/D5w 500 Ml IV 03/11/18 08:43 1.5 mg/min .[id number] [facility] 22.5 mls/hr Administration 1.5 MG/MIN Ketamine HCl 100 mg/ Sodium 100 mls @ 17.7 mls/hr 03/10/18 10:30 Chloride IV ASDIRECTED [facility] 5 MCG/KG/MIN Lactated Ringer's Confirm 03/10/18 10:43 Ringers, Lactated Administered 03/10/18 10:44 Dose 1,000 mls @ as directed .ROUTE .STK-MED ONE Meropenem 500 mg/ Sodium 50 mls @ 100 mls/hr 03/10/18 16:00 03/11/18 22:04 Chloride IV 03/11/18 22:29 100 mls/hr Q6H [facility] Administration Lactated Ringer's 1,000 mls @ 100 mls/hr 03/10/18 14:30 03/11/18 03:20 Ringers, Lactated IV 100 mls/hr ASDIRECTED [facility] Administration Dextrose/Lactated Ringer's 1,000 mls @ 100 mls/hr 03/10/18 14:30 03/10/18 23: 29 Dextrose 5%-Lactated Ringers IV 100 mls/hr ASDIRECTED [facility] Administration Iopamidol 100 ml 03/10/18 05:27 03/10/18 05:35 Isovue-300 (61%) IV 03/10/18 05:28 100 ml . DIRECTED STA Administration Ketamine HCl 29 mg 03/10/18 10:30 Ketalar IV ASDIRECTED [facility] Lidocaine HCl 100 mg 03/10/18 10:30 03/10/18 13:49 Xylocaine 2% IVPUSH 03/10/18 10:31 Not Given ONETIME ONE Lidocaine/Epinephrine Confirm 03/12/18 06:45 03/12/18 07:48 Xylocaine 1% With Epinephrine 1:100,000 Administered 03/12/18 06:46 10 ml Dose Administration 50 ml .ROUTE .STK-MED ONE Meperidine HCl 100 mg 03/10/18 08:45 03/10/18 08:43 Demerol IM 03/10/18 08:46 100 mg ONETIME ONE Administration Meropenem Confirm 03/10/18 10:46 03/10/18 11:19 Merrem Administered 03/10/18 10:47 500 mg Dose Administration 500 mg .ROUTE .STK-MED ONE Meropenem Confirm 03/12/18 06:45 03/12/18 07:50 Merrem Administered 03/12/18 06:46 500 mg Dose Administration 500 mg .ROUTE .STK-MED ONE Midazolam HCl Confirm 03/12/18 06:57 Versed 1 Mg/Ml Administered 03/12/18 06:58 Dose 2 mg .ROUTE .STK-MED ONE Neostigmine Methylsulfate Confirm 03/10/18 09:30 Neostigmine Administered 03/10/18 09:31 Dose 5 mg .ROUTE .STK-MED ONE Verify Scop Patch 0 each 03/10/18 16:00 03/10/18 16:22 TOP Not Given DAILY [facility] Ondansetron HCl 4 mg 03/10/18 04:43 03/10/18 04:50 Zofran IVPUSH 03/10/18 04:44 4 mg ONETIME ONE Administration Ondansetron HCl 4 mg 03/10/18 06:25 03/10/18 06:29 Zofran IVPUSH 03/10/18 06:26 4 mg ONETIME ONE Administration Ondansetron HCl Confirm 03/10/18 04:16 03/10/18 10:08 Zofran Administered 03/10/18 04:17 Not Given Dose 4 mg .ROUTE .STK-MED ONE Ondansetron HCl Confirm 03/10/18 09:30 Zofran Administered 03/10/18 09:31 Dose 4 mg .ROUTE .STK-MED ONE Ondansetron HCl 4 mg 03/10/18 08:00 03/10/18 08:00 Zofran IVPUSH 03/10/18 08:01 4 mg ONETIME ONE Administration Pantoprazole Sodium 40 mg 03/10/18 08:30 03/10/18 09:31 Protonix Iv IV 03/10/18 08:31 40 mg ONETIME ONE Administration Propofol Confirm 03/10/18 09:30 Diprivan 20 Ml Administered 03/10/18 09:31 Dose 200 mg .ROUTE .STK-MED ONE Propofol Confirm 03/12/18 06:57 Diprivan 20 Ml Administered 03/12/18 06:58 Dose 200 mg .ROUTE .STK-MED ONE Propofol Confirm 03/12/18 07:45 Diprivan 20 Ml Administered 03/12/18 07:46 Dose 200 mg .ROUTE .STK-MED ONE Rocuronium Forman Confirm 03/10/18 09:30 Zemuron Administered 03/10/18 09:31 Dose 50 mg .ROUTE .STK-MED ONE Rocuronium Forman Confirm 03/10/18 11:29 Zemuron Administered 03/10/18 11:30 Dose 50 mg .ROUTE .STK-MED ONE Succinylcholine Chloride Confirm 03/10/18 09:30 Quelicin Administered 03/10/18 09:31 Dose 200 mg .ROUTE .STK-MED ONE - Re-Assessments/Exams Free Text/Narrative Re-Assessment/Exam: 03/10/18 06:42 pt has a markedly elevated wbc at 24,000. Her cat scan of the abdoman shows a high grade obstruction--small bowel. 03/12/18 18:39 ng suction was placed and nearly 500cc of contents was obtained. Departure - Departure Time of Disposition: 06:43 Disposition: Admitted As Inpatient 68 Condition: Fair Clinical Impression: Small bowel obstruction, History of Patti fundoplication - Discharge Information
[2018-03-10] MEDS ORDERED: Sodium Chloride 0.9% 75 ML IV STA (05:27)
[2018-03-10] MEDS ORDERED: Iopamidol 612 MG/ML 100 ML Bottle IV STA (05:27)
[2018-03-10] MEDS ORDERED: Naloxone 0.4 MG/ML SDV IV PRN (07:32)
[2018-03-10] MEDS ORDERED: Lactated Ringers 1,000 ML IV SCH (07:45)
[2018-03-10] MEDS: HYDROmorphone/Normal Saline 15 MG/30 ML PCA IV PRN ×2 (07:57→19:47)
[2018-03-10] MEDS ORDERED: Pantoprazole 40 MG Vial IV ONE (08:30)
[2018-03-10] MEDS: Scopolamine 1.5 MG Transdermal Patch TOP SCH (08:43)
[2018-03-10] MEDS ORDERED: hydrOXYzine HCl 100 MG/2 ML SDV IM ONE (08:45)
[2018-03-10] MEDS ORDERED: Meperidine PF 100 MG/ML Syringe IM ONE (08:45)
[2018-03-10] MEDS ORDERED: Propofol 200 MG/20 ML SDV ONE (09:30)
[2018-03-10] MEDS ORDERED: fentaNYL 250 MCG/5 ML SDV ONE ×2 (09:30→11:29)
[2018-03-10] MEDS ORDERED: Dexamethasone 4 MG/ML SDV ONE (09:30)
[2018-03-10] MEDS ORDERED: Rocuronium 50 MG/5 ML Vial ONE ×2 (09:30→11:29)
[2018-03-10] MEDS ORDERED: Neostigmine Methylsulfate 1 MG/ML 5 ML Syringe ONE (09:30)
[2018-03-10] MEDS ORDERED: Succinylcholine 200 MG/10 ML MDV ONE (09:30)
[2018-03-10] MEDS ORDERED: Glycopyrrolate 0.2 MG/ML 5 ML MDV ONE (09:30)
[2018-03-10] MEDS ORDERED: Lidocaine 0.4%/D5W 2 GM/500 ML BAG IV SCH (10:30)
[2018-03-10] MEDS ORDERED: Lidocaine 2% 100 MG/5 ML Syringe IVPUSH ONE (10:30)
[2018-03-10] MEDS ORDERED: Ropivacaine 38 ML, Dexamethasone 8 MG, EPINEPHrine 0.4 MG, Sodium Chloride 0.9% 39.6 ML NERVRT SCH ×4 (10:30)
[2018-03-10] MEDS ORDERED: Meropenem 500 MG in Sodium Chloride 0.9% 50 ML IV ONE (10:30)
[2018-03-10] MEDS ORDERED: Ketamine 500 MG/5 ML MDV IV SCH (10:30)
[2018-03-10] MEDS ORDERED: Lactated Ringers 1,000 ML ONE (10:43)
[2018-03-10] MEDS ORDERED: Meropenem 500 MG SDV ONE (10:46)
[2018-03-10] MEDS: Dextrose 5%-Lactated Ringers 1,000 ML IV SCH ×2 (14:33→23:29)
[2018-03-10] MEDS ORDERED: VERIFY SCOP PATCH TOP SCH (16:00)
[2018-03-10] MEDS: Meropenem 500 MG in Sodium Chloride 0.9% 50 ML IV SCH ×2 (16:05→21:43)
[2018-03-10] MEDS: Lactated Ringers 1,000 ML IV SCH (16:05)
[2018-03-11] MEDS: diphenhydrAMINE 50 MG/ML SDV IVPUSH PRN ×3 (02:41→22:05)
[2018-03-11] MEDS: Meropenem 500 MG in Sodium Chloride 0.9% 50 ML IV SCH ×4 (03:18→22:04)
[2018-03-11] MEDS: Lactated Ringers 1,000 ML IV SCH (03:20)
[2018-03-11] MEDS: HYDROmorphone/Normal Saline 15 MG/30 ML PCA IV PRN ×2 (05:47→13:49)
[2018-03-11] MEDS ORDERED: Dextrose 5% in Water 1,000 ML IV SCH (08:00)
[2018-03-11] MEDS ORDERED: Diphtheria,Pertussis(Acell),Tetanus Vaccine 0.5 ML SDV IM ONE (09:00)
--- NOTE | 2018-03-11 10:41 | PN ---
DATE OF SERVICE: 03/11/2018 SUBJECTIVE: Cheri is postoperative day 1. She states her pain is controlled. She has had 750 total out of her NG. Vital signs have been stable. REVIEW OF SYSTEMS: Remainder of review of systems negative for any pertinent positives and negatives. OBJECTIVE: GENERAL: Cheri Contreras is a pleasant 48-year-old female. VITAL SIGNS: TPR 98.3, 78, 16. Blood pressure 125/66. HEENT: Negative. NECK: Supple. HEART: Regular rate and rhythm. LUNGS: Clear. ABDOMEN: Abdominal binder is on. EXTREMITIES: Without peripheral edema. SCDs are on. ASSESSMENT: Exploratory laparotomy with lysis of extensive adhesions, reduction of small bowel volvulus and closure of internal hernia, removal of intraperitoneal mesh with adherent segment of small bowel, small-bowel strictureplasty, closure area of small bowel de- sterilization x2, enterotomy for tube decompression of small-bowel and mobilization of the omentum across the incision and into pelvis for small-bowel obstruction secondary to small- bowel volvulus, small-bowel grossly adherent to intraperitoneal mesh and pelvic adhesions, marked distention of small bowel and potentially contaminated intraperitoneal mesh. Date of surgery 03/10/2018. Surgeon, Cleve Vela MD. PLAN: 1. Discontinue Marte catheter. 2. Discontinue telemetry. 3. Schedule and have consent signed. 4. Delayed primary closure with IV and local sedation, TAP block; 03/12/2018, Cleve Vela MD; n.p.o. after midnight. 5. Flexeril 10 mg q.6 hours p.o. p.r.n. muscle spasms. 6. Decrease D5 LR to 100 mL per hour. 7. Discontinue lactated Ringer's. 8. Discontinue NG. 9. May wash here. 10.TAP block ordered through pharmacy. 11.Good pulmonary toilet. 12.We will evaluate p.r.n. or in a.m. Lilly Sims PA-C /[id number]
[2018-03-11] MEDS: Pantoprazole 40 MG Vial IV SCH (10:47)
[2018-03-11] MEDS: Cyclobenzaprine 10 MG Tab PO PRN ×2 (15:57→22:03)
[2018-03-12] MEDS: Dextrose 5%-Lactated Ringers 1,000 ML IV SCH (00:04)
[2018-03-12] MEDS: HYDROmorphone/Normal Saline 15 MG/30 ML PCA IV PRN ×2 (03:31→16:50)
[2018-03-12] MEDS ORDERED: Bupivacaine 0.5% 50 ML MDV ONE (06:45)
[2018-03-12] MEDS ORDERED: Lidocaine 1% with EPINEPHrine 1:100,000 50 ML MDV ONE (06:45)
[2018-03-12] MEDS ORDERED: Meropenem 500 MG SDV ONE (06:45)
[2018-03-12] MEDS ORDERED: fentaNYL 100 MCG/2 ML SDV ONE (06:57)
[2018-03-12] MEDS ORDERED: Midazolam 1 MG/ML 2 ML SDV ONE (06:57)
[2018-03-12] MEDS ORDERED: Propofol 200 MG/20 ML SDV ONE ×2 (06:57→07:45)
[2018-03-12] MEDS ORDERED: Ropivacaine 38 ML, Dexamethasone 8 MG, EPINEPHrine 0.4 MG, Sodium Chloride 0.9% 39.6 ML NERVRT SCH ×4 (08:00)
--- NOTE | 2018-03-12 10:35 | PN ---
DATE OF SERVICE: 03/12/2018 SUBJECTIVE: Cheri is n.p.o. She will be having a delayed primary closure today. Pain has been controlled. She has been using Flexeril for muscle spasms. Vital signs have been stable. REVIEW OF SYSTEMS: Remainder of review of systems negative for any pertinent positives and negatives. OBJECTIVE: GENERAL: Cheri Contreras is a 48-year-old female. She is alert and orientated. VITAL SIGNS: TPR 97.3, 120, 17, blood pressure is 128/67. HEENT: Negative. NECK: Supple. HEART: Regular rate and rhythm. LUNGS: Clear. ABDOMEN: Dressings dry and intact. Abdominal binder is on. EXTREMITIES: Without peripheral edema. ASSESSMENT: Exploratory laparotomy with lysis of extensive adhesions, reduction of small bowel volvulus and closure of internal hernia, removal of intraperitoneal mesh with adherent segment of small bowel, small bowel strictureplasty, closure area of small bowel de- sterilization x2, enterotomy for tube decompression of small bowel, mobilization of omentum across the incision and into pelvis for small bowel obstruction secondary to small bowel volvulus, small bowel grossly adherent to intraperitoneal mesh and pelvic adhesions, marked distention of small bowel and potentially contaminated intraperitoneal mesh. Date of surgery 03/10/2018. Surgeon, Cleve Vela MD. PLAN: 1. Orders to be written after delayed primary closure. 2. We will evaluate p.r.n. or in a.m. Lilly Sims PA-C /[id number]
[2018-03-12] MEDS: Docusate Sodium 100 MG Cap PO SCH ×2 (11:34→21:28)
[2018-03-12] MEDS: Bisacodyl 5 MG Tab PO SCH ×2 (11:34→21:28)
[2018-03-12] MEDS: SCOPOLAMINE PATCH TOP SCH ×2 (11:36→18:54)
[2018-03-12] MEDS: Pantoprazole 40 MG Vial IV SCH (11:36)
[2018-03-12] MEDS: Cyclobenzaprine 10 MG Tab PO PRN (21:31)
[2018-03-13] MEDS: HYDROmorphone/Normal Saline 15 MG/30 ML PCA IV PRN ×2 (02:31→13:14)
[2018-03-13] MEDS: Dextrose 5%-Lactated Ringers 1,000 ML IV SCH (06:19)
--- NOTE | 2018-03-13 08:00 | PN ---
DATE OF SERVICE: 03/13/2018 SUBJECTIVE: Cheri had a delayed primary closure yesterday. She has been up ambulating. She was started on bowel stimulation. She is on sips of liquids with clear. She reported her pain is controlled with the SUPERVISOR MICROWAVE. Vital Signs have been stable. Temperature max of 99.5. Oral intake 200, IV intake 1782, and urine output 2650. REVIEW OF SYSTEMS: Remainder of review of systems negative for any pertinent positives and negatives. OBJECTIVE: GENERAL: Cheri Contreras is a pleasant 48-year-old female. She is alert and orientated. VITAL SIGNS: TPR is 97.3, 73, 18, blood pressure 111/62. HEENT: Negative. NECK: Supple. HEART: Regular rate and rhythm. LUNGS: Clear. ABDOMEN: Dressings dry and intact. Abdominal binder is on. EXTREMITIES: Without peripheral edema. ASSESSMENT: 1. Delayed primary closure for open abdominal incision on 03/12/2018. 2. Exploratory laparotomy with lysis of extensive adhesions, reduction of small bowel volvulus, and closure of internal hernia, removal of intraperitoneal mesh with adherent segment of small bowel, small bowel strictureplasty, closure area of small bowel de- sterilization x2, enterotomy for tube decompression of small bowel, mobilization of omentum across the incision and into pelvis for small bowel obstruction secondary to small bowel volvulus. Small bowel grossly adherent to intraperitoneal mesh and pelvic adhesions. Marked distention of small bowel and potentially contaminated intraperitoneal mesh. Date of surgery 03/10/2018. Surgeon; Cleve Vela MD. PLAN: 1. Communication order to call me when the patient has bowel movement. 2. Check CBC, CMP, mag, and phos in a.m. 3. Clear liquid diet. 4. May shower. 5. Good pulmonary toilet. 6. We will evaluate p.r.n. or in a.m. Lilly Sims PA-C /[id number]
[2018-03-13] MEDS: Docusate Sodium 100 MG Cap PO SCH ×2 (08:19→21:06)
[2018-03-13] MEDS: Bisacodyl 5 MG Tab PO SCH ×2 (08:19→21:06)
[2018-03-13] MEDS: Pantoprazole 40 MG Vial IV SCH (08:19)
[2018-03-13] MEDS: Cyclobenzaprine 10 MG Tab PO PRN ×3 (08:20→21:06)
[2018-03-13] MEDS: Scopolamine 1.5 MG Transdermal Patch TOP SCH (09:55)
[2018-03-13] MEDS: SCOPOLAMINE PATCH TOP SCH (10:01)
[2018-03-13] MEDS: Acetaminophen/oxyCODONE 325-5 MG Tab PO PRN ×2 (14:26→18:39)
[2018-03-14] MEDS: Acetaminophen/oxyCODONE 325-5 MG Tab PO PRN ×3 (00:46→08:51)
[2018-03-14] MEDS ORDERED: diphenhydrAMINE 25 MG Cap PO PRN (01:35)
[2018-03-14] MEDS: Cyclobenzaprine 10 MG Tab PO PRN ×2 (03:11→08:52)
[2018-03-14] MEDS ORDERED: Pantoprazole 40 MG Tab.CR PO SCH (07:30)
[2018-03-14 07:31] VITALS: BP 115/62
[2018-03-14] MEDS: Docusate Sodium 100 MG Cap PO SCH (08:52)
[2018-03-14] MEDS: Bisacodyl 5 MG Tab PO SCH (08:53)
[2018-03-14] MEDS ORDERED: Potassium Chloride 20 MEQ Tab.ER PO SCH (09:00)
--- NOTE | 2018-03-14 14:53 | DISCH ---
ADMISSION DIAGNOSES: 1. Partial small bowel obstruction. 2. Crohn disease. 3. Fibromyalgia. 4. Opiate use agreement. DISCHARGE DIAGNOSES: 1. Exploratory laparotomy with lysis of extensive adhesions, reduction of small bowel volvulus and closure of internal hernia, removal of intraperitoneal mesh with adherent segment of small bowel, small bowel strictureplasty, closure of small bowel de- sterilization x2, enterotomy for tube decompression of small bowel, mobilization of omentum across incision and into pelvis for small bowel obstruction secondary to small bowel volvulus because the small bowel was grossly adherent to intraperitoneal mesh and pelvic adhesions, marked distention of small bowel, and potentially contaminated intraperitoneal mesh. Date of surgery 03/10/2018. Surgeon, Cleve Vela MD. 2. Delayed primary closure for open abdominal incision on 03/12/2018 by Cleve Vela MD. HISTORY: Cheri Contreras is a pleasant 48-year-old female, who presented to the emergency room on 03/10/2018 with severe abdominal pain. After preoperative evaluation and discussion of possible risks and possible complications, she wished to proceed with surgical procedure. She had no operative complications. On postop day #1, her Marte catheter was discontinued. She was started on Flexeril to help with muscle spasms. On 03/12, she had delayed primary closure. On 03/13, she started passing flatus, and was started on a clear- liquid diet and in the evening had 2 large bowel movements. On 03/14/2018, vital signs were stable. Activity good, pain controlled, tolerated a soft GI low-fiber soft diet and was able to be discharged to home. PHYSICAL EXAMINATION: GENERAL: Cheri Contreras is a 48-year-old female. Height is 5 feet 6.54 inches. Weight is 168 pounds. TPR is 97.2, 74, 16. Blood pressure 115/62. HEENT: Negative. NECK: Supple. HEART: Regular rate and rhythm. LUNGS: Clear. ABDOMEN: Dressings are dry and intact. Aquacel will be removed prior to discharge. Abdominal binder has been on. EXTREMITIES: Without peripheral edema. DISPOSITION: Discharge to home. CONDITION: Stable and improving. FOLLOWUP: Followup appointment with Cleve Vela MD, at [facility] on 03/25/2018 at 11 a.m. HOME MEDICATIONS: 1. Percocet 5/325 mg, 1 to 2 every 4 hours p.r.n. pain, #40. 2. Bisacodyl 10 mg oral b.i.d. p.r.n. constipation. 3. Flexeril 10 mg q.6 hours p.r.n. muscle spasms, #30. 4. Colace 100 mg b.i.d., #100. 5. Zofran ODT sublingual 4 mg q.6 hours p.r.n. nausea. 6. Klor-Con 20 mEq p.o. daily, #30. 7. She is to resume her home medications. 8. Ibuprofen 200 mg every 6 hours p.r.n. pain. 9. Trazodone 50 mg oral at bedtime. DISCHARGE DIET: GI soft low-fiber diet. Drink 8 to 10 glasses of water a day. ACTIVITY: As tolerated. No lifting greater than 10 pounds for 6 weeks. Activity, walk 6 times daily inside your home, distance and time as tolerated. Driving, after discharge do not drive for 2 weeks and while on pain medication. Shower/bathing, may shower. DISCHARGE INSTRUCTIONS: Notify provider if any fever, increased pain, nausea, or vomiting. Keep site clean and dry. Wear abdominal binder for 6 weeks and then as tolerated. Special instruction, use incentive spirometer 10 times every hour while awake.
--- NOTE | 2018-03-16 23:14 | OR ---
DATE OF PROCEDURE: 03/12/2018 PREOPERATIVE DIAGNOSIS: Open abdominal incision. POSTOPERATIVE DIAGNOSIS: Open abdominal incision. OPERATIVE PROCEDURE: Delayed primary closure of open abdominal incision. ANESTHESIA: Local plus IV sedation. INDICATION FOR PROCEDURE: The patient is 48 hours status post complicated bowel surgery, which involved some inherent contamination of the subcutaneous tissue, which was felt to be at high risk for wound infection if a primary closure was undertaken. Given this, the wound was packed open for a planned delayed primary closure at this time. Potential risks of procedure including bleeding, infection, possible aspiration of gastric contents during the procedure were all reviewed, and the patient wishes to proceed. DETAILS OF PROCEDURE: The patient was taken to the operating room and placed in a supine position. IV sedation was administered after which the operative dressing was taken down. Using ultrasound guidance, bilateral lateral abdominal transverse abdominis plane blocks were then placed using the standard solution. Following this, the abdomen was prepped and draped and the wound edges were anesthetized with 1% lidocaine mixed with Marcaine. The incision was then irrigated with meropenem-containing saline solution and the incision closed with 2 layers of 3-0 and 4-0 Vicryl stitch deep and then sofie for the skin. Dressing was applied. The patient was taken to the recovery room in satisfactory condition. Cleve Vela MD /[id number]
--- NOTE | 2018-03-17 07:52 | OR ---
DATE OF PROCEDURE: 03/10/2018 PREOPERATIVE DIAGNOSIS: Small bowel obstruction. POSTOPERATIVE DIAGNOSES: 1. Small bowel obstruction associated with small bowel volvulus. 2. Small bowel densely adherent to segment of intraperitoneal mesh and pelvis. 3. Marked distention of proximal small bowel. 4. Potentially contaminated intraperitoneal mesh. 5. Recurrent incisional hernia. OPERATIVE PROCEDURES: Exploratory laparotomy with lysis of adhesions and: 1. Reduction of small bowel volvulus and closure of internal hernia (70187). 2. Removal of intraperitoneal mesh with adherent segment of small bowel (46428). 3. Small bowel stricturoplasty (57878). 4. Closure of area of small bowel deserosalization x2 (41777). 5. Enterotomy for tube decompression of proximal small bowel (72639). 6. Repair of recurrent incisional hernia (18445). 7. Mobilization of omentum across incision into the pelvis to limit recurrent adhesion formation between the pelvic and abdominal martinez and adjacent viscera (19150). ANESTHESIA: General. INDICATION FOR PROCEDURE: This is a 48-year-old presenting with a picture of small bowel obstruction. After initial decompression of the stomach with nasogastric tube, the patient remained very uncomfortable, and it was felt best to proceed with an exploratory laparotomy. She had some small bowel that was quite significantly distended, and therefore, particularly with the patient having had recently some mesh placed across the mid and lower abdomen, it was felt best to proceed with an open laparotomy. She is aware that the mesh may need to be removed and otherwise possibility of areas of bowel that might be resected. Potential risks per se included bleeding, infection, injury to underlying viscera, leaks from various GI tract closures, possibility of recurrent obstructive problems over time, and lastly the remote possibility of cardiopulmonary, septic, or hemorrhagic complications potentially leading to were discussed, and the patient wished to proceed. DETAILS OF PROCEDURE: The patient was taken to the operating room and placed in a supine position. After general endotracheal anesthesia was induced, a Marte catheter was inserted, and the abdomen was prepped and draped. Bilateral midabdominal transversus abdominis plane blocks were then placed using ultrasound guidance. A midline incision was then made. This was extended down to just above her recent Pfannenstiel incision, and at that point, the peritoneal cavity was able to be entered at a free point just below the mesh. As one dissected the fascia away from the mesh, it was felt that the mesh would most likely best be removed, as there was marked amount of edema present, and this was a case where we were truly going to need to have some open GI tract during the course of the procedure. Given this, the mesh was then detached from the intraperitoneal attachments and removed from the field. A single loop of bowel was essentially fused with the mesh, and this portion of the bowel was then divided with the ZOYA stapler and removed en bloc with the mesh. This resulted in an area of stricturing of the bowel at that level, which was subsequently repaired. At this point, this allowed further dissection. There were quite dense adhesions between the pelvis and small bowel. As these were taken down, 2 areas of deserosalization of the small bowel were encountered. These were both repaired with transverse firings of the ZOYA sofie. Further examination found the patient's primary point of obstruction was related to a small bowel volvulus. The patient had previously undergone a laparoscopic distal small bowel resection and cecectomy due to a distal small bowel stricture related to her Crohn'w disease, and a mesenteric defect was present at that level through which most of the small bowel had prolapsed through. As this was reduced, the small bowel came into a normal mesenteric configuration. The proximal small bowel was quite thickened and markedly distended. Given this, at the point where the small bowel stricturoplasty was undertaken, a small enterotomy was made, and a [place] sump tube then passed proximally, and the large amount of fluid and air removed from the proximal small bowel to the point where it was well- decompressed. The small bowel stricturoplasty was accomplished by flipping the bowel at the strictured location over on itself, and then one internal firing of the ZOYA 60 mm stapler, a second 40 mm firing was then accomplished, and the common opening was then closed with a ZOYA purple load. The angles of anastomosis were reinforced with some 3-0 Vicryl stitch. There was no mesenteric defect in this location. The mesenteric defect, through which a volvulus had occurred, was then closed with a running 2-0 silk stitch. At this point, no further problems were noted per se. The abdomen was irrigated with meropenem-containing saline solution. To limit recurrent adhesion formation, the omentum was then mobilized down into the depths of the pelvis and sutured there with some 3-0 Vicryl stitch, thus displacing the small bowel from the pelvic and abdominal wall. This included covering up the area of stricturoplasty, which at that point had been reinforced with some fibrin sealant as well. The midline fascia was then approximated with a #2 Vicryl stitch, which included repair of the, by definition, recurrent incisional hernia. Skin and subcutaneous tissue were felt to be at high risk for wound infection, if primary closure was undertaken, and the wound was therefore packed open for a planned delayed primary closure in 48 hours. The patient was taken to the recovery room in a satisfactory condition. [place] sump tube was left in place at the conclusion of this procedure, along with a Marte catheter. Cleve Vela MD /[id number]
== END 2018-03-14 09:25 | disposition home or self-care (01) | DRG 223 ==
LOC: JP.ED 04:40 → JP.MS 07:25
PROVIDERS: ADMIT Surgery; ATTEND Surgery
PROC: 0DS80ZZ Reposition Small Intestine, Open Approach (ICD-10-PCS; principal; 2018-03-10)
PROC: 0WQF0ZZ Repair Abdominal Wall, Open Approach (ICD-10-PCS; 2018-03-10)
PROC: 0WPF0JZ Removal of Synthetic Substitute from Abdominal Wall, Open Approach (ICD-10-PCS; 2018-03-10)
PROC: 3E0T3BZ Introduction of Anesthetic Agent into Peripheral Nerves and Plexi, Percutaneous Approach (ICD-10-PCS; 2018-03-10)
PROC: 0DNU0ZZ Release Omentum, Open Approach (ICD-10-PCS; 2018-03-10)
PROC: 0D980ZZ Drainage of Small Intestine, Open Approach (ICD-10-PCS; 2018-03-10)
PROC: 0DQ80ZZ Repair Small Intestine, Open Approach (ICD-10-PCS; 2018-03-10)
PROC: 0DN84ZZ Release Small Intestine, Percutaneous Endoscopic Approach (ICD-10-PCS; 2018-03-10)
PROC: 0DNW0ZZ Release Peritoneum, Open Approach (ICD-10-PCS; 2018-03-10)
PROC: 0DN80ZZ Release Small Intestine, Open Approach (ICD-10-PCS; 2018-03-10)
PROC: 0WQF0ZZ Repair Abdominal Wall, Open Approach (ICD-10-PCS; 2018-03-12)
DX: K56.2 Volvulus (principal); K46.9 Unspecified abdominal hernia without obstruction or gangrene; Z48.1 Encounter for planned postprocedural wound closure; K66.0 Peritoneal adhesions (postprocedural) (postinfection); K50.90 Crohn's disease, unspecified, without complications; M19.90 Unspecified osteoarthritis, unspecified site; H54.7 Unspecified visual loss; Z88.1 Allergy status to other antibiotic agents; Z91.013 Allergy to seafood; Z88.2 Allergy status to sulfonamides; Z88.8 Allergy status to other drugs, medicaments and biological substances; M79.7 Fibromyalgia; K63.89 Other specified diseases of intestine
CPT/HCPCS: 36415; 74177; 80053; 82150; 82607; 82728; 83690; 83735; 84100; 85025; 85027; 86140; 88305; 88307; 94762; 96361; 96374; 96375; 96376; 99285-25; A9270-GY; C9113; J0171; J0330; J1100; J1170; J1200; J2001; J2175; J2185; J2250; J2405; J2704; J2710; J2795; J3010; J3410; J3490; J7030; J7042; J7050; J7120; Q9967

== ENCOUNTER 2019-12-13 05:03 | Emergency (ER) | payer BC ==
[2019-12-13 05:19] VITALS: BP 118/88; PULSE 92
[2019-12-13] MEDS ORDERED: Ketorolac 60 MG/2 ML SDV IM ONE (05:44)
--- NOTE | 2019-12-13 05:44 | EDM.PDOC ---
<OfficerWesley - Last Filed: 12/13/19 05:41> ED HPI GENERAL MEDICAL PROBLEM - General Chief Complaint: Upper Extremity Injury/Pain Stated Complaint: INJURY TO RIGHT ELBOW Time Seen by Provider: 12/13/19 05:34 Source of Information: Reports: Patient, RN Notes Reviewed History Limitations: Reports: No Limitations - History of Present Illness INITIAL COMMENTS - FREE TEXT/NARRATIVE: 49-year-old female presents emergency department today following a dog attack at home she was running away from some dogs ended up biting her shoe causing her to fall she had a fall on outstretched hand she is complaining of pain in the right elbow and wrist area she also has an abrasion on the left knee but no knee pain right elbow Pain Score (Numeric/FACES): 6 - Related Data Allergies Allergy/AdvReac Type Severity Reaction Status Date / Time cephalexin [Cephalexin] Allergy Mild Rash Verified 12/13/19 05:23 doxycycline Allergy Mild Rash Verified 12/13/19 05:23 Sulfa (Sulfonamide Allergy Mild Rash Verified 12/13/19 05:23 Antibiotics) sulfamethoxazole Allergy Mild Rash Verified 12/13/19 05:23 [From Septra] trimethoprim [From Septra] Allergy Mild Rash Verified 12/13/19 05:23 metronidazole [From Flagyl] Allergy Hives Verified 12/13/19 05:23 shrimp AdvReac Nausea and Verified 12/13/19 05:23 Vomiting Home Meds: Home Meds traMADol [Ultram] 50 mg PO DAILY 06/22/18 [History] Adalimumab [Humira(Cf) Pen] 40 mg SUBCUT ASDIRECTED 12/13/19 [History] traZODone HCl [Trazodone HCl] 50 mg PO BEDTIME PRN 12/13/19 [History] Past Medical History HEENT History: Reports: Impaired Vision, Other (See Below) Other HEENT History: wears reading glasses Gastrointestinal History: Reports: Bowel Obstruction, Chronic Constipation, Colon Polyp, GERD, Inflammatory Bowel Disease, Other (See Below) Other Gastrointestinal History: crohns, gallstones, absess after bowel resection CRANE CHASER History: Reports: 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 Uterine Bleeding, Fibroids, Other CRANE CHASER History: History of tubal Musculoskeletal History: Reports: Arthritis, Fracture, Fibromyalgia Neurological History: Reports: Migraines Immunologic History: Reports: Other (See Below) Other Immunologic History: due to chrohns meds Dermatologic History: Reports: Eczema - Infectious Disease History Infectious Disease History: Reports: Chicken Pox 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 - Past Surgical History GI Surgical History: Reports: Appendectomy, Colonoscopy, EGD, Hernia Repair/ Other, Patti Fundoplication, Small Bowel Female Surgical History: Reports: Hysterectomy, Tubal Ligation Neurological Surgical History: Reports: Discectomy, Lumbar Spine, Spinal Fusion Musculoskeletal Surgical History: Reports: Other (See Below) Other Musculoskeletal Surgeries/Procedures:: History of back surgery Dermatological Surgical History: Reports: None Social & Family History - Family History Family Medical History: Noncontributory HEENT: Reports: None Cardiac: Reports: Afib Respiratory: Reports: COPD Musculoskeletal: Reports: Arthritis Hematologic: Reports: None Oncologic: Reports: Colon, Lung - Tobacco Use Smoking Status *Q: Current Every Day Smoker Years of Tobacco use: 30 Packs/Tins Daily: 0.5 - Caffeine Use Caffeine Use: Reports: Soda - Recreational Drug Use Recreational Drug Use: No - Living Situation & Occupation Living situation: Reports: 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.) Review of Systems - Review of Systems Review Of Systems: See Below Musculoskeletal: Reports: Joint Pain (Wrist and elbow pain) Skin: Reports: Wound ED EXAM, GENERAL - Physical Exam Exam: See Below Free Text/Narrative:: Examination of the right arm I do not appreciate any obvious deformity she has significant tenderness in the elbow to the point where she will not movement she has full range of motion of the right wrist but it is painful radial pulses +2 I cannot palpate any point tenderness full range of motion of all digits sensation is intact there is no tenderness at the shoulder Exam Limited By: No Limitations General Appearance: Alert, WD/WN, No Apparent Distress Respiratory/Chest: No Respiratory Distress Skin Exam: Other (Abrasion right knee) Course - Vital Signs Last Recorded V/S: Last Vital Signs Temp 36.2 C 12/13/19 05:19 Pulse 92 12/13/19 05:19 Resp 17 12/13/19 05:19 BP 118/88 12/13/19 05:19 Pulse Ox 94 L 12/13/19 05:19 - Orders/Labs/Meds Meds: Medications Discontinued Medications Generic Name Dose Route Start Last Admin Trade Name Freq PRN Reason Stop Dose Admin Ketorolac Tromethamine 60 mg 12/13/19 05:44 12/13/19 06:00 Toradol IM 12/13/19 05:45 60 mg ONETIME ONE Administration Departure - Departure Disposition: Home, Self-Care 01 Clinical Impression: Fracture of radius Qualifiers: Encounter type: initial encounter Radius location: proximal Fracture type: closed Fracture morphology: unspecified fracture morphology Laterality: right Qualified Code(s): S52.101A - Unspecified fracture of upper end of right radius , initial encounter for closed fracture - Discharge Information Instructions: Cast or Splint Care, Adult, [id number], Radial Head Fracture, [id number], How To Use a Sling, [id number] Referrals: Markus Gaspar MD [Primary Care Provider] - Forms: ED Department Discharge Additional Instructions: To keep right elbow elevated and iced as much as possible. If you are upright and moving around use a sling. Follow-up with orthopedics this week. Utilize acetaminophen 1000 mg orally 4 times a day for pain. If you have more severe pain you can utilize your Ultram Sepsis Event Note - Evaluation Sepsis Screening Result: No Definite Risk - Focused Exam Vital Signs: Vital Signs Temp Pulse Resp BP Pulse Ox 12/13/19 05:19 36.2 C 92 17 118/88 94 L 12/13/19 05:18 36.2 C 92 17 118/88 94 L Date Exam was Performed: 12/13/19 Time Exam was Performed: 05:41 <Ron Ospina - Last Filed: 12/13/19 07:59> ED TRAUMA EXTREMITY PROCEDURES - Splinting Right Upper Extremity Pre-Procedure NV Status: Normal Post-Procedure NV Status: Normal Splint Material: Fiberglass Splint Design: Extensor Applied & Form Fitted By: Provider Provider Post-Splint Application NV Check: NV Status Normal Complications: No Course - Vital Signs Text/Narrative:: At 0700 Officer discussed the patient with me and asked that I follow-up results of the elbow x-ray. Per my interpretation, I thought the elbow x-ray looks normal with no sail sign, however formal reading of the x-ray by radiologist sates there is a radial fracture. Patient was notified and a splint was placed on the right upper extremity. After splint placement the patient had good capillary refill in her fingernails, normal sensation, and normal movement of all of her fingers. Departure - Departure Time of Disposition: 07:56 Condition: Good Sepsis Event Note - Focused Exam Date Exam was Performed: 12/13/19 Time Exam was Performed: 07:56
--- NOTE | 2019-12-13 07:14 | CRLCR ---
INDICATION: Right elbow pain post fall. TECHNIQUE: Three views of the right elbow. COMPARISON: None. FINDINGS: Acute minimally impacted radial neck fracture. Lateral projection somewhat oblique, limiting evaluation of fat pads. Otherwise unremarkable. IMPRESSION: Acute, minimally impacted radial neck fracture. Dictated by Alessio Dueñas MD @ Dec 13 2019 7:10AM Signed by Dr. Alessio Dueñas @ Dec 13 2019 7:13AM
--- NOTE | 2019-12-13 07:16 | CRLCR ---
INDICATION: Right wrist pain post fall. TECHNIQUE: Two views of the right wrist. COMPARISON: None. FINDINGS: No focal soft tissue swelling. No fracture or subluxation. Mild to moderate 1st CMC joint osteoarthritis and mild triscaphe joint osteoarthritis. IMPRESSION: 1. Negative for acute traumatic abnormality. 2. Osteoarthritis, as above. Dictated by Alessio Dueñas MD @ Dec 13 2019 7:13AM Signed by Dr. Alessio Dueñas @ Dec 13 2019 7:16AM
== END 2019-12-13 08:09 | disposition home or self-care (01) ==
LOC: JP.ED 05:03
DX: S52.101A Unspecified fracture of upper end of right radius, initial encounter for closed fracture (principal); S80.211A Abrasion, right knee, initial encounter; F17.210 Nicotine dependence, cigarettes, uncomplicated; Z88.1 Allergy status to other antibiotic agents; Z88.2 Allergy status to sulfonamides; Z91.013 Allergy to seafood; Z79.899 Other long term (current) drug therapy; W18.39XA Other fall on same level, initial encounter
CPT/HCPCS: 29105; 73070; 73100; 96372; 99283; J1885